=== PATIENT | female | born 1960 | race Caucasian/White ===

== ENCOUNTER 2020-07-09 18:06 | Emergency (ER) | payer OTHER, SELFPAY ==
--- NOTE | ~2020-07-09 | CT_ITS ---
EXAMINATION: CT abdomen pelvis wo con DATE: 07/09/2020 22:34 INDICATION: Abdominal pain and constipation. TECHNIQUE: Computed tomography (CT) of the abdomen and pelvis was performed without intravenous contr ast. Automated exposure control and iterative reconstruction technique were employed. The dose-length product was 659.40 mGy-cm. COMPARISON: None FINDINGS: Lung bases are clear. Heart size is normal. Atherosclerotic coronary artery calcific calcification. N o pericardial or pleural effusion. Small sliding-type hiatal hernia. 9 mm low-attenuation likely cyst or hemangioma in segment 3 of the liver. Gallbladder, spleen, pancreas, bilateral adrenal glands and kidneys are normal. Normal small bowel and appendix. Moderate amount of stool scattered throughout t he colon. There is wall thickening and pericolonic inflammatory stranding along the proximal to mid s igmoid colon. There is moderate sigmoid diverticulosis but without focal inflammatory stranding surro unding any given diverticulum to suggest diverticulitis. No pneumatosis or free intraperineal gas. Bl adder, anteverted uterus and bilateral adnexa are unremarkable. Likely pessary in the vaginal vault. No free intraperitoneal gas or fluid. No pathologically enlarged abdominal or pelvic lymphadenopathy. Moderate lumbar spondylosis. IMPRESSION: 1. Sigmoid diverticulosis but with more diffuse wall thickening and inflammatory stranding along the sigmoid colon. Although differential would include diverticulitis this could also represent a focal c olitis could be either infectious, inflammatory or ischemic in etiology. If not recently performed wo uld recommend colonoscopy for further evaluation to exclude malignancy which could also appear simila rly. 2. Small sliding-type hiatal hernia. Reviewed, dictated and finalized at location A. GAGE SALES MANAGER IMPRESSION: 1. Sigmoid diverticulosis but with more diffuse wall thickening and inflammator y stranding along the sigmoid colon. Although differential would include divert iculitis this could also represent a focal colitis could be either infectious, inflammatory or ischemic in etiology. If not recently performed would recommend colonoscopy for further evaluation to exclude malignancy which could also appe ar similarly. 2. Small sliding-type hiatal hernia.
[2020-07-09 18:43] VITALS: BP 126/89; PULSE 102; RESP 16; TEMP 36.3; O2SAT 98
[2020-07-09 19:03] LABS: Basophils Percent Auto 0.3 % (0.2-1.2); Eosinophils Absolute Auto 0.2 K/mm3 (0-0.3); Eosinophils Percent Auto 1.3 % (0-4.4); Hematocrit 42.1 % (37.0-47.0); Hemoglobin 14.2 g/dL (12.0-15.0); Immature Granulocyte Absolute 0.07 K/mm3 (0.00-0.031); Immature Granulocyte Percent A 0.5 % (0-0.5); Lymphocytes Absolute Auto 1.83 K/mm3 (0.9-3.2); Lymphocytes Percent Auto 13.6 % (18.3-44.2); Mean Corpuscular HGB Conc 33.7 g/dl (32-36); Mean Corpuscular Hemoglobin 30.7 pg (26-34); Mean Corpuscular Volume 90.9 fl (80-100); Mean Platelet Volume 8.6 fl (7.4-10.4); Monocytes Absolute Auto 0.6 K/mm3 (0.1-0.6); Monocytes Percent Auto 4.7 % (2.6-8.5); Neutrophils Absolute Auto 10.7 K/mm3 (1.3-6.7); Neutrophils Percent Auto 79.6 % (45.5-73.1); Platelet Count Result 398 k/mm3 (150-375); Red Blood Count 4.63 M/mm3 (4.2-5.4); Red Cell Distribution Width 13.3 % (11.5-14.5); White Blood Count 13.5 K/mm3 (4.5-10.0)
[2020-07-09 19:15] LABS: Alanine Aminotransferase 28 U/L (4-35); Albumin Level 4.2 g/dL (3.5-5.1); Alkaline Phosphatase 95 U/L (38-126); Anion Gap 6 mmol/L (8-16); Aspartate Amino Transferase 34 U/L (14-36); Bilirubin,Total 0.8 mg/dL (0.2-1.3); Blood Urea Nitrogen 19 mg/dL (7-17); Calcium 9.8 mg/dL (8.4-10.2); Carbon Dioxide 25 mmol/L (22-30); Chloride 108 mmol/L (98-107); Estimated CRCL calculation 66 ml/min; Estimated Glomerular Filt Rate > 60; Glucose 115 mg/dL (65-105); Lipase 285 U/L (23-300); Sodium 139 mmol/L (137-145)
--- NOTE | 2020-07-09 21:23 | PC.NURSE ---
Patient stating she is now having lower abd pain.
[2020-07-09 22:35] VITALS: BP 125/69; PULSE 73; RESP 22; TEMP 36.3; O2SAT 100
--- NOTE | 2020-07-09 22:36 | ED.GENADULT ---
HPI - General Adult General Chief complaint: Unspecified Stated complaint: ABD PAIN after foot surgery Time Seen by Provider: 07/09/20 22:13 Source: patient Mode of arrival: ambulatory Limitations: no limitations History of Present Illness HPI narrative: Patient is a 52-year-old male complaining of constipation accompanied by mild abdominal discomfort that started approximately 2 weeks ago after being started on hydrocodone for his foot surgery, pain. Pain Consistency: intermittent Exacerbating factors: none Related Data Allergies Allergy/AdvReac Type Severity Reaction Status Date / Time adhesive tape AdvReac Mild Rash Verified 07/09/20 22:45 Review of Systems Review of Systems: All systems reviewed & are unremarkable except as noted in HPI and below Constitutional: Constitutional: Denies body ache(s), Denies chills, Denies excessive sweating, Denies fatigue, Denies fever(s), Denies headache(s), Denies lethargy, Denies malaise, Denies weakness and Denies weight loss Eyes: Eyes: Denies blurry vision, Denies change in vision and Denies loss of vision ENT: Denies dizziness, Denies ear discharge, Denies headache(s), Denies lip swelling, Denies epistaxis, Denies nasal congestion, Denies neck pain, Denies throat swelling and Denies tongue swelling Cardiovascular: Cardiovascular: Denies chest pain, Denies chest pain at rest, Denies chest pain with activity, Denies diaphoresis, Denies rapid heart rate, Denies edema, Denies irregular heart rhythm, Denies lightheadedness, Denies palpitations, Denies dyspnea and Denies dyspnea on exertion Respiratory: Respiratory: Denies chest congestion, Denies cough, Denies hemoptysis, Denies dyspnea and Denies dyspnea on exertion Gastrointestinal: Gastrointestinal: Denies melena, Denies hematochezia, Denies diarrhea, Denies nausea, Denies vomiting and Denies hematemesis Musculoskeletal: Musculoskeletal: Denies abnormal gait, Denies deformity, Denies joint swelling, Denies limited range of motion, Denies neck pain and Denies numbness Neurologic: Denies Abnormal speech present, Denies abnormal gait, Denies confusion, Denies dizziness, Denies headache(s), Denies focal weakness, Denies loss of vision, Denies numbness, Denies Other visual disturbances, Denies Sensory deficit (Neuro) and Denies weakness Psychiatric: Psychiatric: Denies confusion, Denies depression, Denies auditory hallucinations, Denies homicidal ideation and Denies suicidal ideation Endocrine: Endocrine: Denies cold intolerance, Denies excessive sweating, Denies fatigue, Denies heat intolerance and Denies palpitations Hematologic/Lymphatic: Hematologic/Lymphatic: Denies easy bleeding and Denies easy bruising Allergic/Immunologic: Allergic/Immunologic: Denies lip swelling, Denies throat swelling and Denies tongue swelling Exam Const: General: cooperative, healthy appearing, comfortable, no acute distress, well developed, alert and awake; No confusion Orientation/consciousness: oriented to person, oriented to place, oriented to time, patient oriented x3 and No confusion Limitations: no limitations HENMT: Head: normal to inspection, normocephalic and atraumatic Ears: hearing grossly normal bilaterally, TM normal on the right and TM normal on the left General nose exam: Normal external nose present, Normal nares present and No nasal discharge present Face and sinus: normal facial exam Mouth: Yes Normal oral and palatal mucosa present, Yes lip normal, Yes tongue normal and Yes oropharynx normal Throat: posterior oropharynx normal, tonsils normal and uvula midline Eyes: General: appearance normal, both eyes and all related structures Pupils: Equal, round and reactive pupils present EOM: EOMs intact bilaterally Neck: Neck: normal visual inspection, full ROM, no lymphadenopathy and no meningeal signs Chest: Chest palpation & inspection: normal inspection of the chest Resp: Effort & Inspection: normal respiratory effort, able to speak in complete
[2020-07-09 22:41] VITALS: PULSE 68; PULSE 73; RESP 17
[2020-07-09 22:42] VITALS: BP 143/83; PULSE 73; RESP 19; O2SAT 100
--- NOTE | 2020-07-09 22:42 | PC.NURSE ---
patient brought back to ED room 1. see triage notes. no change in patient's condition since triage completed. patient has been in our waiting area due to no beds available in ED. patient has had CT done. labs pending. SL inserted. IVF started. patient placed on manager cardiac. call light in reach. patient updated on current treatment plan and expected wait time. patient has scooter at bedside due to recent foot surgery. patient aware that urine specimen will be needed.
[2020-07-09] MEDS: SODIUM CHLORIDE 0.9% IV 1,000 ML 999 ML IV CONT (22:45)
--- NOTE | 2020-07-09 23:24 | PC.NURSE ---
pt assisted to w/c by Ze MIGUEL and taken to restroom to attempt to provide urine sample.
[2020-07-09 23:45] VITALS: BP 146/81; PULSE 63; RESP 16; O2SAT 99
[2020-07-09 23:53] LABS: Add Urine Microscopic? YES; Appearance Urine Clear (Clear); Bilirubin Urine Negative (Negative); Blood Urine Negative (Negative); Color Urine Yellow (Yellow); Glucose Urine UA Negative (Negative); Ketones Urine 1+ mg/dL (Negative); Leukocyte Esterase Ur Trace LEU/UL (Negative); Mucus Urine Moderate /lpf; Nitrate Urine Negative (Negative); Protein Urine Negative (Negative); Squamous Epithelial Cell Urine Many /hpf (Few); WBC Urine 0-3 /hpf
[2020-07-10] LABS: Specific Grav Ur 1.031 (1.001-1.035)
[2020-07-10] MEDS: metroNIDAZOLE 500 MG/ISO 100ML 500 MG/100 ML BAG 100 MG IVPB (00:20)
[2020-07-10 01:19] VITALS: BP 127/77; PULSE 72; RESP 12; O2SAT 99
== END 2020-07-10 01:20 | disposition home or self-care (01) ==
PROVIDERS: Emergency Medicine; Emergency Provider Emergency Medicine; PCP Internal Medicine
DX: K52.9 Noninfective gastroenteritis and colitis, unspecified (principal); Z98.890 Other specified postprocedural states
CPT/HCPCS: 36415; 74176; 80053; 81001; 83690; 85025; 96361; 96365; 96367; 99284; J0696; J7030

== ENCOUNTER 2022-10-03 19:40 | Inpatient (IN) | payer OTHER, SELFPAY ==
--- NOTE | ~2022-10-03 | CT_ITS ---
EXAMINATION: CT abdomen pelvis w con DATE: 10/03/2022 21:52 INDICATION: Low abdominal pain, rectal bleeding. Hematemesis. TECHNIQUE: Computed tomography (CT) of the abdomen and pelvis was performed with 100 CC Omnipaque 350 intravenous contrast. Automated exposure control and iterative reconstruction technique were employe d. Exam dose: 517.68 mGy-cm total exam DLP. COMPARISON: 07/09/2020 CT abdomen FINDINGS: The lung bases are clear. Normal heart size. No pericardial or pleural effusion. Approximately 1.3 cm hemangioma or cyst of the left hepatic lobe. The liver is otherwise unremarkable . The gallbladder is unremarkable. No pericholecystic fluid fat stranding. No bile duct or pancreatic duct dilatation. No pancreatic mass lesion or calcification. Normal splenic size. Normal morphology of the adrenal glands. No renal mass lesion or urinary tract calculus or hydroureteronephrosis. Pessary device. The uterus, adnexal areas and urinary bladder are otherwise unremarkable. Small sliding hiatal hernia. No evidence of appendicitis. There is prominent circumferential wall thickening of the distal transverse colon, splenic flexure an d descending colon with mild pericolic fat stranding. Findings are consistent with colitis are consid ered infectious or inflammatory colitis. Less likely would be ischemic colitis. The celiac and superi or mesenteric and inferior mesenteric arteries appear widely patent. There is minimal atherosclerotic calcification of the abdominal aorta. No abdominal aortic aneurysm. No intraperitoneal or retroperitoneal or pelvic mass lesion or adenopathy or ascites. Very small fat-containing umbilical hernia. No suspicious osteolytic or osteoblastic lesions. Prominent degenerative changes apophyseal joints of the lower lumbar and lumbosacral area with associ ated grade 1 anterolisthesis at L4-5. Moderately severe degenerative disc disease at L4-5. Diverticulosis of the sigmoid and descending colon; no evidence of diverticulitis IMPRESSION: Nonspecific colitis of the distal transverse colon and descending colon; infectious or i nflammatory colitis are most likely. Diverticulosis of left colon; no CT evidence of diverticulitis No evidence of appendicitis Small sliding hiatal hernia. Approximately 1.3 cm hemangioma or cyst of left hepatic lobe Pessary device Reviewed, dictated and finalized at [facility]. Reviewed, dictated and finalized at location A. TE MACHINE BLUER IMPRESSION: Nonspecific colitis of the distal transverse colon and descending colon; infectious or inflammatory colitis are most likely. Diverticulosis of left colon; no CT evidence of diverticulitis No evidence of appendicitis Small sliding hiatal hernia. Approximately 1.3 cm hemangioma or cyst of left hepatic lobe Pessary device
--- NOTE | ~2022-10-03 | XR_ITS ---
EXAMINATION: XR abdomen/kub 1V INDICATION: Constipation TECHNIQUE: Supine views of the abdomen were obtained on 2 radiographs. COMPARISON: 09/15/2022 FINDINGS: The bowel gas pattern is normal. There are no dilated loops of bowel. The visualized lung b ases are clear. A pessary is noted. IMPRESSION: 1. Unremarkable abdominal radiographs. Reviewed, dictated and finalized at location F. ERS' COMPENSATION COMMISSIONER
--- NOTE | ~2022-10-03 | XR_ITS ---
EXAMINATION: XR abdomen/kub 1V DATE: 10/05/2022 13:18 INDICATION: Nausea and vomiting. TECHNIQUE: A supine view of the abdomen on 2 radiographs was obtained. COMPARISON: CT abdomen and pelvis 10/03/2022 FINDINGS: There are no dilated loops of bowel. There is a pessary in the vagina. IMPRESSION: 1. Normal bowel gas pattern. Reviewed, dictated and finalized at location A. WARE SYSTEMS ENGINEER
[2022-10-03 19:52] VITALS: BP 131/91; PULSE 116; RESP 18; TEMP 36.8; O2SAT 97
[2022-10-03 20:36] LABS: Basophils Percent Auto 0.2 % (0.2-1.2); Eosinophils Percent Auto 0.1 % (0-4.4); Hematocrit 41.2 % (37.0-47.0); Hemoglobin 14.3 g/dL (12.0-15.0); Immature Granulocyte Percent A 0.6 % (0-0.5); Lymphocytes Absolute Auto 0.74 K/mm3 (0.9-3.2); Lymphocytes Percent Auto 4.6 % (18.3-44.2); Mean Corpuscular HGB Conc 34.7 g/dl (32-36); Mean Corpuscular Hemoglobin 31.8 pg (26-34); Mean Corpuscular Volume 91.8 fl (80-100); Mean Platelet Volume 8.8 fl (7.4-10.4); Monocytes Absolute Auto 0.7 K/mm3 (0.1-0.6); Monocytes Percent Auto 4.4 % (2.6-8.5); Neutrophils Absolute Auto 14.4 K/mm3 (1.3-6.7); Neutrophils Percent Auto 90.1 % (45.5-73.1); Platelet Count Result 300 k/mm3 (150-375); Red Blood Count 4.49 M/mm3 (4.2-5.4); Red Cell Distribution Width 12.9 % (11.5-14.5)
[2022-10-03 20:46] LABS: Prothrombin Time 13.1 Seconds (11.1-14.7)
[2022-10-03 20:47] LABS: Partial Thromboplastin Time 29.3 SECONDS (22.3-36.8)
[2022-10-03 20:53] LABS: Alanine Aminotransferase 25 U/L (6-35); Albumin Level 4.3 g/dL (3.5-5.1); Alkaline Phosphatase 89 U/L (38-126); Anion Gap 7 mmol/L (8-16); Aspartate Amino Transferase 34 U/L (14-36); Bilirubin,Total 0.8 mg/dL (0.2-1.3); Blood Urea Nitrogen 19 mg/dL (7-17); Calcium 10.1 mg/dL (8.4-10.2); Carbon Dioxide 26 mmol/L (22-30); Chloride 103 mmol/L (98-107); Estimated CRCL calculation 64 ml/min; Estimated Glomerular Filt Rate > 60; Glucose 128 mg/dL (65-110); Lipase 50 U/L (23-300); Magnesium 1.8 mg/dL (1.6-2.3); Potassium 4.3 mmol/L (3.4-5.0); Sodium 136 mmol/L (137-145)
[2022-10-03 20:55] LABS: CRP 1.4 mg/dL (<1.0)
[2022-10-03 20:57] LABS: Lactic Acid Reflex 1.3 mmol/L (0.7-2.0)
[2022-10-03] MEDS: MORPHINE SULFATE (*CRX) 4 MG/ML INJ IV PUSH ×2 (21:06→23:39)
[2022-10-03] MEDS: ONDANSETRON INJ 4 MG/2 ML VIAL IV PUSH (21:06)
--- NOTE | 2022-10-03 21:06 | ED.GENADULT ---
HPI - General Adult General Chief complaint: Abdominal Pain Stated complaint: abd pain, blood in stool Time Seen by Provider: 10/03/22 19:53 History of Present Illness HPI narrative: Patient 62-year-old female who presents the emergency department with chief complaint of abdominal pain vomiting and diarrhea. The patient reports that this morning she started having episodes of vomiting and then also has been having diarrhea. The patient reports that gradually the diarrhea has changed over to being bloody and reports that she noticed that her vomit also contained blood in it. Patient reports she has diffuse abdominal discomfort the patient denies fever reports no prior history of similar symptoms reports she is not on any anticoagulant patient denies prior abdominal surgeries. Related Data Allergies Allergy/AdvReac Type Severity Reaction Status Date / Time adhesive tape AdvReac Mild Rash Verified 10/03/22 20:03 Review of Systems Review of Systems: A 10 system review of systems was completed on the patient and is negative except for what is stated in the HPI. Nursing and ancillary documentation was reviewed. Exam Narrative: GENERAL: Well-appearing, well-nourished, and in no acute distress. HEAD: Normocephalic, atraumatic. EYES: PERRLA and EOMI. ENT: Nares clear, no rhinorrhea or epistaxis. Mucous membranes moist. NECK: Supple. CHEST: Clear to auscultation. No respiratory distress. HEART: Regular rate and rhythm. No murmur heard. Normal peripheral pulses. ABDOMEN: Soft, minimal tenderness, nondistended, normal active bowel sounds. : Rectal exam performed no gross blood but quite positive EXTREMITIES: Normal range of motion. No edema. SKIN: Warm, dry, no rash. NEURO: No focal deficits. Alert and oriented x3. PSYCH: Normal mood and affect. Course Vital Signs Vital signs: Vital Signs Temperature 36.8 C 10/03/22 19:52 Pulse Rate 116 H 10/03/22 19:52 Respiratory Rate 18 10/03/22 19:52 Blood Pressure 131/91 H 10/03/22 19:52 Pulse Oximetry 97 10/03/22 19:52 Oxygen Delivery Room Air 10/03/22 19:52 Temperature 36.8 C 10/03/22 19:52 Pulse Rate 116 H 10/03/22 19:52 Respiratory Rate 18 10/03/22 19:52 Blood Pressure 131/91 H 10/03/22 19:52 Pulse Oximetry 97 10/03/22 19:52 Oxygen Delivery Room Air 10/03/22 19:52 Medical Decision Making MDM Narrative Medical decision making narrative: Differential diagnosis includes colitis diverticulitis, GI bleeding, appendicitis cholecystitis Laboratory studies were obtained which showed a mildly elevated CRP at 1.4 white count was 16,000 hemoglobin was 14.3 COVID was negative flu was negative. CT scan showed evidence of diffuse colitis involving the transverse and descending colon Vital Signs Vital Signs: Vital Signs Temperature 36.8 C 10/03/22 19:52 Pulse Rate 116 H 10/03/22 19:52 Respiratory Rate 18 10/03/22 19:52 Blood Pressure 131/91 H 10/03/22 19:52 Pulse Oximetry 97 10/03/22 19:52 Oxygen Delivery Room Air 10/03/22 19:52 Temperature 36.8 C 10/03/22 19:52 Pulse Rate 116 H 10/03/22 19:52 Respiratory Rate 18 10/03/22 19:52 Blood Pressure 131/91 H 10/03/22 19:52 Pulse Oximetry 97 10/03/22 19:52 Oxygen Delivery Room Air 10/03/22 19:52 Lab Data 10/03/22 20:21 10/03/22 20:21 Labs: Lab Results 10/03/22 10/03/22 10/03/22 Range/Units 20:21 20:21 20:21 WBC 16.0 H (4.5-10.0) K/mm3 RBC 4.49 (4.2-5.4) M/mm3 Hgb 14.3 (12.0-15.0) g/dL Hct 41.2 (37.0-47.0) % MCV 91.8 (80-100) fl MCH 31.8 (26-34) pg MCHC 34.7 (32-36) g/dl RDW 12.9 (11.5-14.5) % Plt Count 300 (150-375) k/mm3 MPV 8.8 (7.4-10.4) fl Immature Gran % (Auto) 0.6 H (0-0.5) % Neut % (Auto) 90.1 H (45.5-73.1) % Lymph % (Auto) 4.6 L (18.3-44.2) % [place] % (Auto) 4.4 (2.6-8.5) % Eos % (Auto) 0.1 (0-4.4) % Baso % (Auto) 0.2 (0.2-1.2)
[2022-10-03 21:15] LABS: Influenza A QL RT-PCR Negative (Negative); Influenza B QL RT-PCR Negative (Negative); SARS-CoV-2 RNA PCR Negative
[2022-10-03 22:00] VITALS: BP 126/94; PULSE 105; RESP 18; O2SAT 98
--- NOTE | 2022-10-03 23:12 | PM.IMHP ---
H&P: HPI History of Present Illness Date/Time: 10/03/22 23:12 Meds Home Medications and Allergies Home Medications Medication Instructions Recorded Confirmed Type ciprofloxacin HCl 500 mg tablet 500 mg PO Q12H #14 tabs 07/10/20 Rx (Cipro) metronidazole 500 mg tablet 500 mg PO Q8H 7 days #21 tabs 07/10/20 Rx (Flagyl) Allergies Allergy/AdvReac Type Severity Reaction Status Date / Time adhesive tape AdvReac Mild Rash Verified 10/03/22 20:03 Vital Signs Vital Signs - 24 hr 10/03/22 19:52 Temperature 98.2 F Pulse Rate 116 H Respiratory Rate 18 Blood Pressure 131/91 H Pulse Oximetry 97 Oxygen Delivery Room Air H&P: Results Labs Labs: Short CBC 10/03/22 Range/Units 20:21 WBC 16.0 H (4.5-10.0) K/mm3 Hgb 14.3 (12.0-15.0) g/dL Hct 41.2 (37.0-47.0) % Plt Count 300 (150-375) k/mm3 BMP 10/03/22 20:21 Sodium 136 L Potassium 4.3 Chloride 103 Carbon Dioxide 26 BUN 19 H Creatinine 0.80 Glucose 128 H Calcium 10.1 Liver Function 10/03/22 Range/Units 20:21 Total Bilirubin 0.8 (0.2-1.3) mg/dL AST 34 (14-36) U/L ALT 25 (6-35) U/L Alkaline Phosphatase 89 (38-126) U/L Albumin 4.3 (3.5-5.1) g/dL
--- NOTE | 2022-10-03 23:15 | PM.IMHP ---
H&P: HPI History of Present Illness Date/Time: 10/03/22 23:15 Chief Complaint: Abdominal pain, nausea, vomiting, diarrhea. Narrative: This is a 62-year-old female with GERD and hyperlipidemia presented to the emergency department via EMS from home for evaluation of abdominal pain, nausea, vomiting, and diarrhea. Patient provides the following history. Her symptoms started this morning with diffuse cramping abdominal pain followed by innumerable bouts of watery diarrhea which later turned bloody. She has also had significant nausea, dry heaves, and a small amount of emesis tinged with bright red blood. She has not had a fever to her knowledge. She denies recent antibiotic use, travel, and sick contacts. No personal history of C diff or inflammatory bowel disease. She has not cooked rum eat recently. Temperature was normal on arrival to the ED and her blood pressures have been stable. Pertinent labs include a WBC count of 16.0, sodium 136, potassium 4.3, carbon dioxide 26, BUN 19, creatinine 0.0, lactic acid 1.3, CRP 1.4. LFTs and lipase were within normal limits. She was negative for influenza and COVID. CT of the abdomen and pelvis showed findings of diffuse colitis involving a portion of the transverse and descending colon. She has been started on metronidazole and levofloxacin and she is being admitted in this setting for further treatment. Review of Systems Review of Systems: Twelve systems were reviewed and are negative except for as per HPI. FORMERLY [facility], [facility] Past Medical History Medical History (Updated 10/03/22 @ 23:39 by Susana Agosto PA-C) Depression with anxiety Gastroesophageal reflux disease Irritable bowel syndrome Surgical History Surgical History (Updated 10/03/22 @ 23:36 by Susana Agosto PA-C) History of foot surgery Social History Social History (Updated 10/03/22 @ 23:37 by Susana Agosto PA-C) Social History: The patient lives in [place] with her . Retired from working for [employer]. Nonsmoker. No alcohol or illicit substance abuse. She designates her as her surrogate decision maker and she wishes to be a full code. Meds Home Medications and Allergies Home Medications Medication Instructions Recorded Confirmed Type ciprofloxacin HCl 500 mg tablet 500 mg PO Q12H #14 tabs 07/10/20 Rx (Cipro) metronidazole 500 mg tablet 500 mg PO Q8H 7 days #21 tabs 07/10/20 Rx (Flagyl) Allergies Allergy/AdvReac Type Severity Reaction Status Date / Time adhesive tape AdvReac Mild Rash Verified 10/03/22 20:03 Vital Signs Vital Signs - 24 hr 10/03/22 19:52 Temperature 98.2 F Pulse Rate 116 H Respiratory Rate 18 Blood Pressure 131/91 H Pulse Oximetry 97 Oxygen Delivery Room Air Exam Narrative: General: Moderately ill appearing female in the semi-Kimbrough position in bed in no acute distress. Weight: 73.6 kg. BMI 27.9. HEENT: Normocephalic, atraumatic. PERRL, EOMI. Sclera anicteric. Tacky mucous membranes. Neck: Supple. Respiratory: Lungs are clear to auscultation bilaterally. Cardiovascular: Regular rate and rhythm with S1-S2. Gastrointestinal: Abdomen is soft and slightly distended with hyperactive bowel sounds. She is tender to light palpation and percussion throughout the abdomen. No guarding or rebound tenderness. Skin: Warm and dry. No rash or lesions on limited exam. Extremities: No cyanosis, clubbing, or edema. Radial and pedal pulses intact. Neurological: Alert. Cranial nerves 2-12 are grossly intact. No gross focal deficits to casual conversation. Psychiatric: Appropriate mood and affect. H&P: Results Labs Labs: Short CBC 10/03/22 Range/Units 20:21 WBC 16.0 H (4.5-10.0) K/mm3 Hgb 14.3 (12.0-15.0) g/dL Hct 41.2 (37.0-47.0) % Plt Count 300 (150-375) k/mm3 [facility] 10/03/22 20:21 Sodium 136 L Potassium 4.3 Chloride 103 Carbon Dioxide 26 BUN 19 H Creatinine 0.80 Glucose 128 H Calcium 10.1 Live
[2022-10-03] MEDS: metroNIDAZOLE 500 MG/ISO 100ML 500 MG/100 ML BAG 100 MG IVPB (23:33)
[2022-10-04 00:14] VITALS: BP 105/72; PULSE 99; RESP 16; O2SAT 98
[2022-10-04 00:20] VITALS: BP 100/50; PULSE 83; RESP 18; TEMP 36.8; O2SAT 98; BMI 26.8
[2022-10-04] MEDS: PROMETHAZINE HCL 25 MG/ML AMPUL 12.5 MG IV PUSH ×4 (01:18→21:38)
[2022-10-04] MEDS: LORazepam INJ (*CRX) 2 MG/ML VIAL 1 MG IV PUSH (01:18)
[2022-10-04] MEDS: SODIUM CHLORIDE 0.9% IV 1,000 ML 125 ML IV CONT ×2 (01:19→16:42)
[2022-10-04] MEDS: ONDANSETRON INJ 4 MG/2 ML VIAL IV PUSH ×2 (01:19→21:38)
[2022-10-04] MEDS: PANTOPRAZOLE SODIUM IV 40 MG VIAL IV PUSH ×2 (01:28→09:29)
[2022-10-04 05:39] VITALS: BP 103/49; PULSE 87; RESP 20; TEMP 36.9; O2SAT 97
[2022-10-04] MEDS: metroNIDAZOLE 500 MG/ISO 100ML 500 MG/100 ML BAG 100 MG IVPB ×4 (06:20→21:37)
[2022-10-04 07:37] LABS: Basophils Percent Auto 0.2 % (0.2-1.2); Eosinophils Absolute Auto 0.1 K/mm3 (0-0.3); Eosinophils Percent Auto 0.8 % (0-4.4); Hematocrit 39.2 % (37.0-47.0); Hemoglobin 13.1 g/dL (12.0-15.0); Immature Granulocyte Absolute 0.07 K/mm3 (0.00-0.031); Immature Granulocyte Percent A 0.6 % (0-0.5); Lymphocytes Absolute Auto 1.39 K/mm3 (0.9-3.2); Lymphocytes Percent Auto 11.3 % (18.3-44.2); Mean Corpuscular HGB Conc 33.4 g/dl (32-36); Mean Corpuscular Hemoglobin 31.3 pg (26-34); Mean Corpuscular Volume 93.8 fl (80-100); Mean Platelet Volume 8.6 fl (7.4-10.4); Monocytes Absolute Auto 0.8 K/mm3 (0.1-0.6); Monocytes Percent Auto 6.3 % (2.6-8.5); Neutrophils Percent Auto 80.8 % (45.5-73.1); Platelet Count Result 266 k/mm3 (150-375); Red Blood Count 4.18 M/mm3 (4.2-5.4); Red Cell Distribution Width 13.2 % (11.5-14.5); White Blood Count 12.3 K/mm3 (4.5-10.0)
[2022-10-04 07:43] LABS: Alanine Aminotransferase 23 U/L (6-35); Albumin Level 3.8 g/dL (3.5-5.1); Alkaline Phosphatase 80 U/L (38-126); Anion Gap 6 mmol/L (8-16); Aspartate Amino Transferase 37 U/L (14-36); Bilirubin,Total 0.8 mg/dL (0.2-1.3); Blood Urea Nitrogen 14 mg/dL (7-17); Calcium 8.5 mg/dL (8.4-10.2); Carbon Dioxide 23 mmol/L (22-30); Chloride 105 mmol/L (98-107); Estimated CRCL calculation 56 ml/min; Estimated Glomerular Filt Rate > 60; Glucose 110 mg/dL (65-110); Magnesium 1.7 mg/dL (1.6-2.3); Potassium 3.7 mmol/L (3.4-5.0); Sodium 134 mmol/L (137-145)
[2022-10-04 08:28] LABS: Thyroid Stimulating Hormone Reflex 0.385 uIU/mL (0.465-4.68)
[2022-10-04 10:22] LABS: Total Triiodothyronine (T3) 0.88 NG/ML (0.97-1.69)
[2022-10-04] MEDS: MORPHINE SULFATE (*CRX) 4 MG/ML INJ IV PUSH ×3 (10:54→21:38)
--- NOTE | 2022-10-04 11:03 | PM.IMPN ---
Progress Note: A&P Assessment and Plan (1) Colitis: Code(s): K52.9 - Noninfective gastroenteritis and colitis, unspecified Status: Acute (2) Rectal bleeding: Code(s): K62.5 - Hemorrhage of anus and rectum Status: Acute (3) Dehydration: Code(s): E86.0 - Dehydration Status: Acute Plan The patient presented to the ED via EMS from home for evaluation abdominal pain, vomiting, and diarrhea as per HPI. Labs, imaging, and all reports were personally reviewed. CT scan shows findings of colitis which are presumably infectious. Ischemic colitis is a consideration given reports of bright red blood per rectum however her lactic acid level is within normal limits. She has been started on metronidazole and levofloxacin. Stool studies have been ordered and are pending. Trend hemoglobin and hematocrit. Patient also reports blood tinged emesis following multiple episodes of dry heaves and I think it is unlikely that she has an acute upper GI bleed as well. We will continue to monitor closely. Antiemetics are available as needed. Continue Protonix 40 mg IV. She will be judiciously hydrated overnight as she looks quite dry. Her home medications will be reviewed and resumed as appropriate. Subjective Date/time seen: 10/04/22 11:03 No complaints Exam Narrative: General: Moderately ill appearing female in the semi-Kimbrough position in bed in no acute distress. Weight: 73.6 kg. BMI 27.9. HEENT: Normocephalic, atraumatic. PERRL, EOMI. Sclera anicteric. Tacky mucous membranes. Neck: Supple. Respiratory: Lungs are clear to auscultation bilaterally. Cardiovascular: Regular rate and rhythm with S1-S2. Gastrointestinal: Abdomen is soft and slightly distended with hyperactive bowel sounds. She is tender to light palpation and percussion throughout the abdomen. No guarding or rebound tenderness. Skin: Warm and dry. No rash or lesions on limited exam. Extremities: No cyanosis, clubbing, or edema. Radial and pedal pulses intact. Neurological: Alert. Cranial nerves 2-12 are grossly intact. No gross focal deficits to casual conversation. Psychiatric: Appropriate mood and affect. Objective Data Vital Signs Vital Signs: Vital Signs - 24 hr 10/03/22 19:52 10/04/22 00:14 10/03/22 22:00 Temperature 98.2 F Pulse Rate 116 H 99 105 H Respiratory Rate 18 16 18 Blood Pressure 131/91 H 105/72 126/94 H Pulse Oximetry 97 98 98 Oxygen Delivery Room Air 10/04/22 00:20 10/04/22 05:39 Temperature 98.2 F 98.4 F Pulse Rate 83 87 Respiratory Rate 18 20 Blood Pressure 100/50 L 103/49 L Pulse Oximetry 98 97 Oxygen Delivery Intake/Output Intake/Output: Intake & Output 10/01/22 10/02/22 10/03/22 10/04/22 23:59 23:59 23:59 23:59 Intake Total 900 350 Balance 900 350 Meds/Results Medications: Active Medications Generic Name Dose Route Start Last Admin Trade Name Freq PRN Reason Stop Dose Admin Acetaminophen 650 mg 10/03/22 23:42 Acetaminophen 325 Mg Tablet PO Q6H PRN Mild Pain (1-3) or Fever Atorvastatin Calcium 40 mg 10/04/22 09:00 10/04/22 10:55 Atorvastatin 40 Mg Tablet PO Not Given DAILY BRONSON Bupropion HCl 150 mg 10/04/22 09:00 10/04/22 10:55 Bupropion Hcl Sr (12 Hr) 150 Mg Tab PO Not Given Q12HR BRONSON Hyoscyamine 0.375 mg 10/04/22 09:00 10/04/22 10:55 Hyoscyamine Sulfate 0.375 Mg Tab.Er.12h PO Not Given Q12HR BRONSON Levofloxacin/Dextrose 750 mg in 150 mls @ 100 mls/hr 10/05/22 00:00 Levaquin 750 Mg/D5w 150 Ml IVPB Q24H BRONSON Metronidazole 500 mg in 100 mls @ 100 mls/hr 10/04/22 05:00 10/04/22 10:51 Flagyl 500 Mg/Iso Soln 100 Ml IVPB 100 mls/hr Q6H BRONSON Administration Acetaminophen 1,000 mg in 100 mls @ 400 mls/hr 10/03/22 23:15 10/04/22 07:55 Ofirmev 1,000 Mg Ivpb IVPB 10/04/22 23:14 Infused Q6H PRN Infusion Mild Pain (1-3) or Fever Sodium Chloride 1,000 mls @ 125 mls/hr 10/03/22 23:15 10/04/22 01:19
[2022-10-04 11:14] LABS: Appearance Urine Clear (Clear); Bilirubin Urine Negative (Negative); Blood Urine Trace-lysed (Negative); Color Urine Yellow (Yellow); Glucose Urine UA Negative (Negative); Ketones Urine Negative (Negative); Leukocyte Esterase Ur 1+ LEU/UL (Negative); Nitrate Urine Negative (Negative); Protein Urine Negative (Negative); Specific Grav Ur >= 1.030 (1.001-1.035); Urobilinogen Urine 0.2 mg/dL (<2.0); pH Urine 5.5 (5.0-9.0)
[2022-10-04 11:19] LABS: Bacteria Urine Trace /hpf; Mucus Urine Rare /lpf; Squamous Epithelial Cell Urine Many /hpf (Few); WBC Urine 21-30 /hpf
[2022-10-04 12:09] LABS: Add Urine Microscopic? YES
[2022-10-04 14:00] VITALS: BP 121/72; PULSE 85; RESP 16; TEMP 36.9; O2SAT 98
[2022-10-04 16:16] LABS: Hemoglobin 12.3 g/dL (12.0-15.0)
[2022-10-04] MEDS: CALCIUM CARBONATE (TUMS) 500 MG (200 MG ELEMENTAL) 400 MG PO (16:41)
--- NOTE | 2022-10-04 17:27 | WPDGICN ---
Assessment and Plan Assessment and plan (1) Colitis: Code(s): K52.9 - Noninfective gastroenteritis and colitis, unspecified Status: Acute Assessment and Plan: colitis will explain presentation of symptoms, could be infectious or ischemic (normal lactic though) fluids, antibiotics and medical support CL diet for now stool studies pending I will favor colonoscopy in 4-6 weeks after back to her baseline (2) Rectal bleeding: Code(s): K62.5 - Hemorrhage of anus and rectum Status: Acute Assessment and Plan: from colitis stable h/h (3) Leukocytosis: Code(s): D72.829 - Elevated white blood cell count, unspecified Status: Acute Assessment and Plan: on abx monitor (4) Dehydration: Code(s): E86.0 - Dehydration Status: Acute Assessment and Plan: treated with fluids (5) Nausea and vomiting in adult: Code(s): R11.2 - Nausea with vomiting, unspecified Status: Acute Assessment and Plan: from enterocolitis medical management GI Consult Note Consult date/time: 10/04/22 17:27 Reason for consult: colitis, rectal bleed, diarrhea HPI: Lottie Crisostomo is a 62 year old female with GERD, chronic constipation (normally goes 1-2 times a week) and hyperlipidemia presented to the emergency department via EMS from home for new onset of severe lower abdominal pain, nausea, vomiting, and diarrhea. Symptoms started morning of admission with diffuse cramping abdominal pain then with several bouts of watery diarrhea followed bloody stool. Also became nauseous and small amount of emesis. Denies fever or chills, no sick contacts, no recent antibiotic use or travel. Blood work WBC 16.0, sodium 136, potassium 4.3, carbon dioxide 26, BUN 19, creatinine 0.0, lactic acid 1.3, CRP 1.4. LFTs and lipase were within normal limits. She was negative for influenza and COVID. CT of the abdomen and pelvis reviewed and showed findings of diffuse colitis involving a portion of the transverse and descending colon. Last colonoscopy about 5 years ago. Review of Systems Constitutional: Constitutional: Denies chills Eyes: Eyes: Denies blurry vision ENT: Reports Normal hearing present Cardiovascular: Cardiovascular: Denies chest pain Respiratory: Respiratory: Denies chest congestion Gastrointestinal: Gastrointestinal: Reports abdominal pain, Reports hematochezia, Reports diarrhea, Reports nausea and Reports vomiting Genitourinary: Genitourinary: Denies hematuria Musculoskeletal: Musculoskeletal: Denies back pain Integumentary/Breasts: Skin/Breast: Denies dry skin Neurologic: Denies Abnormal speech present Psychiatric: Psychiatric: Denies behavioral changes [facility] Past Medical History Medical History (Updated 10/04/22 @ 17:31 by Timo Tenorio MD) Depression with anxiety Gastroesophageal reflux disease Irritable bowel syndrome Nausea and vomiting in adult Surgical History Surgical History (Updated 10/03/22 @ 23:36 by Susana Agosto PA-C) History of foot surgery Social History Social History (Updated 10/03/22 @ 23:37 by Susana Agosto PA-C) Social History: The patient lives in [place] with her . 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 Nonsmoker. No alcohol or illicit substance abuse. She designates her as her surrogate decision maker and she wishes to be a full code. Smoking status: Never smoker Second hand tobacco smoke exposure: No Alcohol intake: never Substance use: never Substance use type: does not use Lack of Transportation: No Lack of Food: Never True Current Housing: I Have Housing Concerned About Future Housing: No Difficulty Paying Gas/Electric Bills: No Difficulty Paying for Meds: No Currently Unemployed: No Education: Decline to Answer Difficulty w/ Childcare or Family Care: No Spiritual care concerns: No Meds Home Medications and Allergies Home Medications
[2022-10-04 20:01] LABS: Hematocrit 37.2 % (37.0-47.0); Hemoglobin 12.4 g/dL (12.0-15.0)
[2022-10-04 21:30] VITALS: BP 120/54; PULSE 84; RESP 16; TEMP 37.5; O2SAT 96
[2022-10-04] MEDS: buPROPion HCL SR (12 HR) 150 MG TAB PO (21:37)
[2022-10-04] MEDS: HYOSCYAMINE SULFATE 0.375 MG TAB.ER.12H PO (21:37)
[2022-10-05] MEDS: SODIUM CHLORIDE 0.9% IV 1,000 ML 125 ML IV CONT ×2 (00:26→19:19)
[2022-10-05] MEDS: PROMETHAZINE HCL 25 MG/ML AMPUL 12.5 MG IV PUSH ×2 (02:30→09:11)
[2022-10-05] MEDS: MORPHINE SULFATE (*CRX) 4 MG/ML INJ IV PUSH ×2 (02:30→21:23)
--- NOTE | 2022-10-05 03:05 | PC.NURSE ---
Patient called out reporting multiple emesis. Patient called RN into BR to show small amount of bright red blood on underwear and toilet paper when wiping. Patient denies any syncope and Headache with nausea resolved well with medication. New IV started into right forearm and IVFs restarted. Patient otherwise is in stable condition.
[2022-10-05 05:43] VITALS: BP 121/53; PULSE 81; RESP 18; TEMP 36.8; O2SAT 97
[2022-10-05] MEDS: metroNIDAZOLE 500 MG/ISO 100ML 500 MG/100 ML BAG 100 MG IVPB ×4 (05:50→21:23)
[2022-10-05] MEDS: ATORVASTATIN 40 MG TABLET PO (09:11)
[2022-10-05] MEDS: HYOSCYAMINE SULFATE 0.375 MG TAB.ER.12H PO (09:11)
[2022-10-05] MEDS: PANTOPRAZOLE SODIUM IV 40 MG VIAL IV PUSH (09:11)
[2022-10-05] MEDS: buPROPion HCL SR (12 HR) 150 MG TAB PO (09:11)
[2022-10-05] MEDS: HYDROcodone/acetaminophen (*CRX) 5-325 MG TABLET 1 TAB PO ×2 (10:25→18:04)
--- NOTE | 2022-10-05 10:55 | PM.IMPN ---
Progress Note: A&P Assessment and Plan (1) Colitis: Code(s): K52.9 - Noninfective gastroenteritis and colitis, unspecified Status: Acute Assessment and Plan: Continue IV antibiotics (2) Rectal bleeding: Code(s): K62.5 - Hemorrhage of anus and rectum Status: Acute Assessment and Plan: Stabilized. Will recheck a H&H in the morning (3) Dehydration: Code(s): E86.0 - Dehydration Status: Acute Assessment and Plan: Continue IV fluids Subjective Date/time seen: 10/05/22 10:55 Complaining of a headache today. Otherwise no new complaints. Exam Narrative: General: Moderately ill appearing female in the semi-Kimbrough position in bed in no acute distress. Weight: 73.6 kg. BMI 27.9. HEENT: Normocephalic, atraumatic. PERRL, EOMI. Sclera anicteric. Tacky mucous membranes. Neck: Supple. Respiratory: Lungs are clear to auscultation bilaterally. Cardiovascular: Regular rate and rhythm with S1-S2. Gastrointestinal: Abdomen is soft and slightly distended with hyperactive bowel sounds. She is tender to light palpation and percussion throughout the abdomen. No guarding or rebound tenderness. Skin: Warm and dry. No rash or lesions on limited exam. Extremities: No cyanosis, clubbing, or edema. Radial and pedal pulses intact. Neurological: Alert. Cranial nerves 2-12 are grossly intact. No gross focal deficits to casual conversation. Psychiatric: Appropriate mood and affect. Objective Data Vital Signs Vital Signs: Vital Signs - 24 hr 10/04/22 14:00 10/04/22 21:30 10/05/22 05:43 Temperature 98.4 F 99.5 F 98.2 F Pulse Rate 85 84 81 Respiratory Rate 16 16 18 Blood Pressure 121/72 120/54 L 121/53 L Pulse Oximetry 98 96 97 Oxygen Delivery 10/05/22 09:11 Temperature Pulse Rate Respiratory Rate Blood Pressure Pulse Oximetry Oxygen Delivery Room Air Intake/Output Intake/Output: Intake & Output 10/02/22 10/03/22 10/04/22 10/05/22 23:59 23:59 23:59 23:59 Intake Total 900 1980 1500 Output Total 1000 900 Balance 900 980 600 Meds/Results Medications: Active Medications Generic Name Dose Route Start Last Admin Trade Name Freq PRN Reason Stop Dose Admin Acetaminophen 650 mg 10/03/22 23:42 Acetaminophen 325 Mg Tablet PO Q6H PRN Mild Pain (1-3) or Fever Atorvastatin Calcium 40 mg 10/04/22 09:00 10/05/22 09:11 Atorvastatin 40 Mg Tablet PO 40 mg DAILY BRONSON Administration Bupropion HCl 150 mg 10/04/22 09:00 10/05/22 09:11 Bupropion Hcl Sr (12 Hr) 150 Mg Tab PO 150 mg Q12HR BRONSON Administration Calcium Carbonate 400 mg 10/04/22 15:26 10/04/22 16:41 Calcium Carbonate (Tums) 500 Mg (200 Mg Elemental) PO 400 mg Q6H PRN Administration Indigestion Hyoscyamine 0.375 mg 10/04/22 09:00 10/05/22 09:11 Hyoscyamine Sulfate 0.375 Mg Tab.Er.12h PO 0.375 mg Q12HR BRONSON Administration Levofloxacin/Dextrose 750 mg in 150 mls @ 100 mls/hr 10/05/22 00:00 10/05/22 00:26 Levaquin 750 Mg/D5w 150 Ml IVPB 100 mls/hr Q24H BRONSON Administration Metronidazole 500 mg in 100 mls @ 100 mls/hr 10/04/22 05:00 10/05/22 10:27 Flagyl 500 Mg/Iso Soln 100 Ml IVPB 100 mls/hr Q6H BRONSON Administration Sodium Chloride 1,000 mls @ 125 mls/hr 10/03/22 23:15 10/05/22 00:26 Normal Saline Iv IV CONT 125 mls/hr .Q8H BRONSON Administration Morphine Sulfate 4 mg 10/03/22 23:45 10/05/22 02:30 Morphine Sulfate (*Crx) 4 Mg/Ml Inj IV PUSH 4 mg Q4H PRN Administration Pain Rated 7-10 Pantoprazole Sodium 40 mg 10/04/22 09:00 10/05/22 09:11 Pantoprazole Sodium Iv 40 Mg Vial IV PUSH 40 mg QAM BRONSON Administration Promethazine HCl 12.5 mg 10/03/22 23:15 10/05/22 09:11 Promethazine Hcl 25 Mg/Ml Ampul IV PUSH 12.5 mg Q6H PRN Administration Nausea Radiology Results: ITS Impressions Abdomen/Pelvis CT 02/26/23 11:09 IMPRESSION: Nonspecific colitis of the distal trans
--- NOTE | 2022-10-05 12:27 | WPDGIPROGNO ---
Progress Note: A&P Assessment and Plan (1) Nausea and vomiting in adult: Code(s): R11.2 - Nausea with vomiting, unspecified Status: Acute Assessment and Plan: antiemetics from colitis (2) Rectal bleeding: Code(s): K62.5 - Hemorrhage of anus and rectum Status: Acute Assessment and Plan: slowing down, from colitis stable h/h (3) Colitis: Code(s): K52.9 - Noninfective gastroenteritis and colitis, unspecified Status: Acute Assessment and Plan: on abx pending stool sample ? ischemic vs infections colonoscopy in 4-6 weeks (4) Leukocytosis: Code(s): D72.829 - Elevated white blood cell count, unspecified Status: Acute (5) Dehydration: Code(s): E86.0 - Dehydration Status: Acute Subjective Date/time seen: 10/05/22 12:27 Interval history: lat time had BM was 3 am, less bloody. Still with headache and nausea. Review of Systems Review of Systems: All systems reviewed & are unremarkable except as noted in HPI and below Exam Const: General: comfortable HENMT: Face/Nose/Sinus: Normal nares present Eyes: General: appearance normal, both eyes and all related structures Neck: Neck: supple Resp: Effort & Inspection: normal respiratory effort Cardio: Rate: regular rate Rhythm: regular rhythm GI: GI Palp: Yes Soft to palpation, Yes Tenderness to palpation present (GI) (mild ttp in lower abdomen, no rebound) and No Guarding due to palpation present (GI) Auscultation: normal bowel sounds Skin: General skin exam: normal color Neuro: Speech: normal speech Motor exam (neuro): 5/5 motor strength present throughout Sensory Exam: normal sensation Extrem: General: normal to inspection Objective Data Vital Signs Vital Signs: Vital Signs - 24 hr 10/04/22 14:00 10/04/22 21:30 10/05/22 05:43 Temperature 98.4 F 99.5 F 98.2 F Pulse Rate 85 84 81 Respiratory Rate 16 16 18 Blood Pressure 121/72 120/54 L 121/53 L Pulse Oximetry 98 96 97 Oxygen Delivery 10/05/22 09:11 Temperature Pulse Rate Respiratory Rate Blood Pressure Pulse Oximetry Oxygen Delivery Room Air Intake/Output Intake/Output: Intake & Output 10/02/22 10/03/22 10/04/22 10/05/22 23:59 23:59 23:59 23:59 Intake Total 900 1980 1500 Output Total 1000 900 Balance 900 980 600 Meds/Results Medications: Active Medications Generic Name Dose Route Start Last Admin Trade Name Freq PRN Reason Stop Dose Admin Acetaminophen 650 mg 10/03/22 23:42 Acetaminophen 325 Mg Tablet PO Q6H PRN Mild Pain (1-3) or Fever Atorvastatin Calcium 40 mg 10/04/22 09:00 10/05/22 09:11 Atorvastatin 40 Mg Tablet PO 40 mg DAILY BRONSON Administration Bupropion HCl 150 mg 10/04/22 09:00 10/05/22 09:11 Bupropion Hcl Sr (12 Hr) 150 Mg Tab PO 150 mg Q12HR BRONSON Administration Calcium Carbonate 400 mg 10/04/22 15:26 10/04/22 16:41 Calcium Carbonate (Tums) 500 Mg (200 Mg Elemental) PO 400 mg Q6H PRN Administration Indigestion Hyoscyamine 0.375 mg 10/04/22 09:00 10/05/22 09:11 Hyoscyamine Sulfate 0.375 Mg Tab.Er.12h PO 0.375 mg Q12HR BRONSON Administration Levofloxacin/Dextrose 750 mg in 150 mls @ 100 mls/hr 10/05/22 00:00 10/05/22 00:26 Levaquin 750 Mg/D5w 150 Ml IVPB 100 mls/hr Q24H BRONSON Administration Metronidazole 500 mg in 100 mls @ 100 mls/hr 10/04/22 05:00 10/05/22 10:27 Flagyl 500 Mg/Iso Soln 100 Ml IVPB 100 mls/hr Q6H BRONSON Administration Sodium Chloride 1,000 mls @ 125 mls/hr 10/03/22 23:15 10/05/22 00:26 Normal Saline Iv IV CONT 125 mls/hr .Q8H BRONSON Administration Morphine Sulfate 4 mg 10/03/22 23:45 10/05/22 02:30 Morphine Sulfate (*Crx) 4 Mg/Ml Inj IV PUSH 4 mg Q4H PRN Administration Pain Rated 7-10 Pantoprazole Sodium 40 mg 10/04/22 09:00 10/05/22 09:11 Pantoprazole Sodium Iv 40 Mg Vial IV PUSH 40 mg QAM BRONSON Administration Promethazine HCl
[2022-10-05 14:41] VITALS: BP 127/65; PULSE 94; RESP 18; TEMP 36.6; O2SAT 74
--- NOTE | 2022-10-05 16:22 | PC.NURSE ---
Pt is an A&O4 female that went down to xray today. Pt has had a headache that was treated with a one time dose of pain medication. Pt continues to have a headache, though she stated the pain did decrease. Will continue to monitor pt.
[2022-10-05] MEDS: PROCHLORPERAZINE EDISYLATE 10 MG/2 ML VIAL IV PUSH (21:23)
[2022-10-05 21:42] VITALS: BP 126/76; PULSE 71; RESP 14; TEMP 36.2; O2SAT 97
[2022-10-06] MEDS: HYDROcodone/acetaminophen (*CRX) 5-325 MG TABLET 1 TAB PO ×2 (04:53→14:49)
[2022-10-06] MEDS: PROMETHAZINE HCL 25 MG/ML AMPUL 12.5 MG IV PUSH (04:53)
[2022-10-06] MEDS: metroNIDAZOLE 500 MG/ISO 100ML 500 MG/100 ML BAG 100 MG IVPB (04:54)
[2022-10-06 05:45] VITALS: BP 122/59; PULSE 72; RESP 14; TEMP 36.1; O2SAT 96
[2022-10-06 06:29] LABS: Basophils Percent Auto 0.5 % (0.2-1.2); Eosinophils Absolute Auto 0.2 K/mm3 (0-0.3); Eosinophils Percent Auto 2.3 % (0-4.4); Hemoglobin 11.7 g/dL (12.0-15.0); Immature Granulocyte Absolute 0.05 K/mm3 (0.00-0.031); Immature Granulocyte Percent A 0.6 % (0-0.5); Lymphocytes Absolute Auto 1.48 K/mm3 (0.9-3.2); Lymphocytes Percent Auto 18.9 % (18.3-44.2); Mean Corpuscular HGB Conc 32.5 g/dl (32-36); Mean Corpuscular Hemoglobin 31.2 pg (26-34); Mean Platelet Volume 8.7 fl (7.4-10.4); Monocytes Absolute Auto 0.5 K/mm3 (0.1-0.6); Monocytes Percent Auto 6.5 % (2.6-8.5); Neutrophils Absolute Auto 5.6 K/mm3 (1.3-6.7); Neutrophils Percent Auto 71.2 % (45.5-73.1); Platelet Count Result 225 k/mm3 (150-375); Red Blood Count 3.75 M/mm3 (4.2-5.4); White Blood Count 7.8 K/mm3 (4.5-10.0)
[2022-10-06 06:46] LABS: Anion Gap 2 mmol/L (8-16); Blood Urea Nitrogen 5 mg/dL (7-17); Carbon Dioxide 26 mmol/L (22-30); Chloride 105 mmol/L (98-107); Estimated CRCL calculation 83 ml/min; Estimated Glomerular Filt Rate > 60; Glucose 86 mg/dL (65-110); Potassium 3.2 mmol/L (3.4-5.0); Sodium 133 mmol/L (137-145)
[2022-10-06] MEDS: PANTOPRAZOLE SODIUM IV 40 MG VIAL IV PUSH (09:55)
[2022-10-06] MEDS: buPROPion HCL SR (12 HR) 150 MG TAB PO ×2 (09:56→20:48)
[2022-10-06] MEDS: HYOSCYAMINE SULFATE 0.375 MG TAB.ER.12H PO ×2 (09:56→20:48)
[2022-10-06] MEDS: ATORVASTATIN 40 MG TABLET PO (09:56)
[2022-10-06] MEDS: POTASSIUM CHLORIDE 20 MEQ PACKET (FOR LIQUID) 40 MEQ PO (09:56)
[2022-10-06] MEDS: SODIUM CHLORIDE 0.9% IV 1,000 ML 125 ML IV CONT (09:57)
--- NOTE | 2022-10-06 10:40 | PM.IMPN ---
Progress Note: A&P Assessment and Plan (1) Colitis: Code(s): K52.9 - Noninfective gastroenteritis and colitis, unspecified Status: Acute Assessment and Plan: Continue IV antibiotics Advance diet Likely discharge in 1-2 days (2) Rectal bleeding: Code(s): K62.5 - Hemorrhage of anus and rectum Status: Acute Assessment and Plan: Stabilized. Will recheck a H&H in the morning (3) Dehydration: Code(s): E86.0 - Dehydration Status: Acute Assessment and Plan: Continue IV fluids Subjective Date/time seen: 10/06/22 10:40 Feeling better today. Abdominal pain is improved. Tolerating liquids Exam Narrative: General: Moderately ill appearing female in the semi-Kimbrough position in bed in no acute distress. Weight: 73.6 kg. BMI 27.9. HEENT: Normocephalic, atraumatic. PERRL, EOMI. Sclera anicteric. Tacky mucous membranes. Neck: Supple. Respiratory: Lungs are clear to auscultation bilaterally. Cardiovascular: Regular rate and rhythm with S1-S2. Gastrointestinal: Abdomen is soft and slightly distended with hyperactive bowel sounds. She is tender to light palpation and percussion throughout the abdomen. No guarding or rebound tenderness. Skin: Warm and dry. No rash or lesions on limited exam. Extremities: No cyanosis, clubbing, or edema. Radial and pedal pulses intact. Neurological: Alert. Cranial nerves 2-12 are grossly intact. No gross focal deficits to casual conversation. Psychiatric: Appropriate mood and affect. Objective Data Vital Signs Vital Signs: Vital Signs - 24 hr 10/05/22 14:41 10/05/22 21:42 10/06/22 05:45 Temperature 97.9 F 97.1 F L 97.0 F L Pulse Rate 94 71 72 Respiratory Rate 18 14 14 Blood Pressure 127/65 126/76 122/59 L Pulse Oximetry 74 L 97 96 Intake/Output Intake/Output: Intake & Output 10/03/22 10/04/22 10/05/22 10/06/22 23:59 23:59 23:59 23:59 Intake Total 900 1980 3340 1650 Output Total 1000 2200 1200 Balance 384 901 4202 450 Meds/Results Medications: Active Medications Generic Name Dose Route Start Last Admin Trade Name Freq PRN Reason Stop Dose Admin Acetaminophen 650 mg 10/03/22 23:42 Acetaminophen 325 Mg Tablet PO Q6H PRN Mild Pain (1-3) or Fever Hydrocodone Bitart/Acetaminophen 1 tab 10/05/22 18:06 10/06/22 04:53 Hydrocodone/Acetaminophen (*Crx) 5-325 Mg Tablet PO 1 tab Q8H PRN Administration Pain Rated 4-6 Atorvastatin Calcium 40 mg 10/04/22 09:00 10/06/22 09:56 Atorvastatin 40 Mg Tablet PO 40 mg DAILY BRONSON Administration Bupropion HCl 150 mg 10/04/22 09:00 10/06/22 09:56 Bupropion Hcl Sr (12 Hr) 150 Mg Tab PO 150 mg Q12HR BRONSON Administration Calcium Carbonate 400 mg 10/04/22 15:26 10/04/22 16:41 Calcium Carbonate (Tums) 500 Mg (200 Mg Elemental) PO 400 mg Q6H PRN Administration Indigestion Hyoscyamine 0.375 mg 10/04/22 09:00 10/06/22 09:56 Hyoscyamine Sulfate 0.375 Mg Tab.Er.12h PO 0.375 mg Q12HR BRONSON Administration Levofloxacin/Dextrose 750 mg in 150 mls @ 100 mls/hr 10/05/22 00:00 10/06/22 10:11 Levaquin 750 Mg/D5w 150 Ml IVPB Infused Q24H BRONSON Infusion Metronidazole 500 mg in 100 mls @ 100 mls/hr 10/04/22 05:00 10/06/22 04:54 Flagyl 500 Mg/Iso Soln 100 Ml IVPB 100 mls/hr Q6H BRONSON Administration Sodium Chloride 1,000 mls @ 125 mls/hr 10/03/22 23:15 10/06/22 09:57 Normal Saline Iv IV CONT 125 mls/hr .Q8H BRONSON Administration Morphine Sulfate 4 mg 10/03/22 23:45 10/05/22 21:23 Morphine Sulfate (*Crx) 4 Mg/Ml Inj IV PUSH 4 mg Q4H PRN Administration Pain Rated 7-10 Pantoprazole Sodium 40 mg 10/04/22 09:00 10/06/22 09:55 Pantoprazole Sodium Iv 40 Mg Vial IV PUSH 40 mg QAM BRONSON Administration Prochlorperazine Edisylate 10 mg 10/05/22 20:17 10/05/22 21:23 Prochlorperazine Edisylate 10 Mg/2 Ml Vial IV PUSH 10 mg Q6H PRN Administration Nausea And Vomiting Pr
[2022-10-06 14:00] VITALS: BP 120/50; PULSE 79; RESP 12; TEMP 36.6; O2SAT 94
[2022-10-06] MEDS: metroNIDAZOLE 250 MG TABLET 500 MG PO ×2 (16:49→20:48)
--- NOTE | 2022-10-06 17:12 | WPDGIPROGNO ---
Progress Note: A&P Assessment and Plan (1) Nausea and vomiting in adult: Code(s): R11.2 - Nausea with vomiting, unspecified Status: Acute Assessment and Plan: antiemetics from colitis tolerating diet, still pain but better (2) Rectal bleeding: Code(s): K62.5 - Hemorrhage of anus and rectum Status: Acute Assessment and Plan: resolved from colitis stable h/h (3) Colitis: Code(s): K52.9 - Noninfective gastroenteritis and colitis, unspecified Status: Acute Assessment and Plan: on abx pending stool sample ? ischemic vs infections colonoscopy in 4-6 weeks (4) Leukocytosis: Code(s): D72.829 - Elevated white blood cell count, unspecified Status: Acute Assessment and Plan: resolved (5) Dehydration: Code(s): E86.0 - Dehydration Status: Acute Assessment and Plan: treated Subjective Date/time seen: 10/06/22 17:12 Interval history: no more diarrhea or bleeding, had upper abdominal pain after eating solids but slowly improving Review of Systems Review of Systems: All systems reviewed & are unremarkable except as noted in HPI and below Exam Const: General: comfortable HENMT: Face/Nose/Sinus: Normal nares present Eyes: General: appearance normal, both eyes and all related structures Neck: Neck: supple Resp: Effort & Inspection: normal respiratory effort Cardio: Rate: regular rate Rhythm: regular rhythm GI: GI Palp: Yes Soft to palpation, Yes Tenderness to palpation present (GI) (ttp in upper abdomen, no rebound) and No Guarding due to palpation present (GI) Auscultation: normal bowel sounds Skin: General skin exam: normal color Neuro: Speech: normal speech Motor exam (neuro): 5/5 motor strength present throughout Sensory Exam: normal sensation Extrem: General: normal to inspection Objective Data Vital Signs Vital Signs: Vital Signs - 24 hr 10/05/22 21:42 10/06/22 05:45 10/06/22 09:57 Temperature 97.1 F L 97.0 F L Pulse Rate 71 72 Respiratory Rate 14 14 Blood Pressure 126/76 122/59 L Pulse Oximetry 97 96 Oxygen Delivery Room Air 10/06/22 14:00 Temperature 97.8 F Pulse Rate 79 Respiratory Rate 12 Blood Pressure 120/50 L Pulse Oximetry 94 Oxygen Delivery Intake/Output Intake/Output: Intake & Output 10/03/22 10/04/22 10/05/22 10/06/22 23:59 23:59 23:59 23:59 Intake Total 900 1980 3340 1650 Output Total 1000 2200 1200 Balance 221 687 1528 450 Meds/Results Medications: Active Medications Generic Name Dose Route Start Last Admin Trade Name Freq PRN Reason Stop Dose Admin Acetaminophen 650 mg 10/03/22 23:42 Acetaminophen 325 Mg Tablet PO Q6H PRN Mild Pain (1-3) or Fever Hydrocodone Bitart/Acetaminophen 1 tab 10/05/22 18:06 10/06/22 14:49 Hydrocodone/Acetaminophen (*Crx) 5-325 Mg Tablet PO 1 tab Q8H PRN Administration Pain Rated 4-6 Atorvastatin Calcium 40 mg 10/04/22 09:00 10/06/22 09:56 Atorvastatin 40 Mg Tablet PO 40 mg DAILY BRONSON Administration Bupropion HCl 150 mg 10/04/22 09:00 10/06/22 09:56 Bupropion Hcl Sr (12 Hr) 150 Mg Tab PO 150 mg Q12HR BRONSON Administration Calcium Carbonate 400 mg 10/04/22 15:26 10/04/22 16:41 Calcium Carbonate (Tums) 500 Mg (200 Mg Elemental) PO 400 mg Q6H PRN Administration Indigestion Hyoscyamine 0.375 mg 10/04/22 09:00 10/06/22 09:56 Hyoscyamine Sulfate 0.375 Mg Tab.Er.12h PO 0.375 mg Q12HR BRONSON Administration Sodium Chloride 1,000 mls @ 125 mls/hr 10/03/22 23:15 10/06/22 09:57 Normal Saline Iv IV CONT 125 mls/hr .Q8H BRONSON Administration Levofloxacin 750 mg 10/06/22 21:00 Levofloxacin 750 Mg Tablet PO DAILY@2100 BRONSON Metronidazole 500 mg 10/06/22 14:00 10/06/22 16:49 Metronidazole 250 Mg Tablet PO 500 mg Q8HR BRONSON Administration Morphine Sulfate 4 mg 10/03/22 23:45 10/05/22 21:23 Morphine Sulfate (*Crx) 4 M
--- NOTE | 2022-10-06 19:50 | PC.NURSE ---
Pt continues to have a headache. Pt has had no nausea or vomiting. Pt tolerated diet advancement well. Pt continues to have episodes of dizziness. Pt monitored for any changes in status.
[2022-10-06] MEDS: levoFLOXacin 750 MG TABLET PO (20:48)
[2022-10-06 22:00] VITALS: BP 113/64; PULSE 91; RESP 14; TEMP 36.7; O2SAT 96
[2022-10-07] MEDS: metroNIDAZOLE 250 MG TABLET 500 MG PO ×3 (05:39→21:13)
[2022-10-07 06:00] VITALS: BP 114/64; PULSE 68; RESP 14; TEMP 36.8; O2SAT 98
[2022-10-07 06:33] LABS: Basophils Percent Auto 0.4 % (0.2-1.2); Eosinophils Absolute Auto 0.2 K/mm3 (0-0.3); Eosinophils Percent Auto 2.4 % (0-4.4); Hematocrit 36.2 % (37.0-47.0); Hemoglobin 12.1 g/dL (12.0-15.0); Immature Granulocyte Absolute 0.05 K/mm3 (0.00-0.031); Immature Granulocyte Percent A 0.6 % (0-0.5); Lymphocytes Absolute Auto 1.89 K/mm3 (0.9-3.2); Lymphocytes Percent Auto 22.3 % (18.3-44.2); Mean Corpuscular HGB Conc 33.4 g/dl (32-36); Mean Corpuscular Hemoglobin 31.2 pg (26-34); Mean Corpuscular Volume 93.3 fl (80-100); Mean Platelet Volume 8.6 fl (7.4-10.4); Monocytes Absolute Auto 0.4 K/mm3 (0.1-0.6); Monocytes Percent Auto 5.1 % (2.6-8.5); Neutrophils Absolute Auto 5.9 K/mm3 (1.3-6.7); Neutrophils Percent Auto 69.2 % (45.5-73.1); Platelet Count Result 249 k/mm3 (150-375); Red Blood Count 3.88 M/mm3 (4.2-5.4); Red Cell Distribution Width 13.2 % (11.5-14.5); White Blood Count 8.5 K/mm3 (4.5-10.0)
[2022-10-07 06:47] LABS: Potassium 3.5 mmol/L (3.4-5.0)
[2022-10-07 06:53] LABS: Anion Gap 5 mmol/L (8-16); Blood Urea Nitrogen 10 mg/dL (7-17); Calcium 8.6 mg/dL (8.4-10.2); Carbon Dioxide 26 mmol/L (22-30); Chloride 103 mmol/L (98-107); Estimated CRCL calculation 72 ml/min; Estimated Glomerular Filt Rate > 60; Glucose 107 mg/dL (65-110); Sodium 134 mmol/L (137-145)
[2022-10-07] MEDS: buPROPion HCL SR (12 HR) 150 MG TAB PO ×2 (08:42→21:14)
[2022-10-07] MEDS: ATORVASTATIN 40 MG TABLET PO (08:42)
[2022-10-07] MEDS: HYOSCYAMINE SULFATE 0.375 MG TAB.ER.12H PO ×2 (08:42→21:13)
[2022-10-07] MEDS: CALCIUM CARBONATE (TUMS) 500 MG (200 MG ELEMENTAL) 400 MG PO (08:46)
[2022-10-07] MEDS: DOCUSATE SODIUM 100 MG CAPSULE PO ×2 (10:00→21:12)
[2022-10-07] MEDS: polyethylene glycoL 3350 17 GM POWD.PACK PO (10:00)
[2022-10-07] MEDS: PANTOPRAZOLE 40 MG TABLET PO (10:01)
--- NOTE | 2022-10-07 13:28 | PM.IMPN ---
Progress Note: A&P Assessment and Plan (1) Colitis: Code(s): K52.9 - Noninfective gastroenteritis and colitis, unspecified Status: Acute Assessment and Plan: Continue IV antibiotics Advance diet Likely discharge in 1-2 days 10/07/2022 interval history: 62-year-old female presented with complaint abdominal pain nausea vomiting most likely secondary to colitis being treated levofloxacin and Flagyl patient states her symptoms are improved C was able to eat her breakfast now feels nauseated and has abdominal pain, will monitor I will discharge the patient tomorrow, upon arrival due to the concern for rectal bleeding, which is now resolved her hemoglobin is stable patient was seen by GI and further recommendation to follow. (2) Rectal bleeding: Code(s): K62.5 - Hemorrhage of anus and rectum Status: Acute Assessment and Plan: Stabilized. Will recheck a H&H in the morning (3) Dehydration: Code(s): E86.0 - Dehydration Status: Acute Assessment and Plan: Continue IV fluids Subjective Date/time seen: 10/07/22 13:28 10/07/2022 interval history: 62-year-old female presented with complaint abdominal pain nausea vomiting most likely secondary to colitis being treated levofloxacin and Flagyl patient states her symptoms are improved C was able to eat her breakfast now feels nauseated and has abdominal pain, will monitor I will discharge the patient tomorrow, upon arrival due to the concern for rectal bleeding, which is now resolved her hemoglobin is stable patient was seen by GI and further recommendation to follow. Review of Systems Review of Systems: All systems reviewed & are unremarkable except as noted in HPI and below Exam Narrative: moderately obese Patient is comfortable, NAD HEENT: eyes are clear and none icteric LUNGS: normal respiratory effort ABD: not distended Lower extremities: no edema SKIN: nonjaundiced Neuro: grossly intact. Objective Data Vital Signs Vital Signs: Vital Signs - 24 hr 10/06/22 14:00 10/06/22 22:00 10/07/22 06:00 Temperature 97.8 F 98.1 F 98.2 F Pulse Rate 79 91 68 Respiratory Rate 12 14 14 Blood Pressure 120/50 L 113/64 114/64 Pulse Oximetry 94 96 98 Oxygen Delivery 10/07/22 08:42 Temperature Pulse Rate Respiratory Rate Blood Pressure Pulse Oximetry Oxygen Delivery Room Air Intake/Output Intake/Output: Intake & Output 10/04/22 10/05/22 10/06/22 10/07/22 23:59 23:59 23:59 23:59 Intake Total 1980 3340 2150 750 Output Total 1000 2200 1200 950 Balance 980 1140 950 -200 Meds/Results Medications: Active Medications Generic Name Dose Route Start Last Admin Trade Name Freq PRN Reason Stop Dose Admin Acetaminophen 650 mg 10/03/22 23:42 Acetaminophen 325 Mg Tablet PO Q6H PRN Mild Pain (1-3) or Fever Hydrocodone Bitart/Acetaminophen 1 tab 10/05/22 18:06 10/06/22 14:49 Hydrocodone/Acetaminophen (*Crx) 5-325 Mg Tablet PO 1 tab Q8H PRN Administration Pain Rated 4-6 Atorvastatin Calcium 40 mg 10/04/22 09:00 10/07/22 08:42 Atorvastatin 40 Mg Tablet PO 40 mg DAILY BRONSON Administration Bupropion HCl 150 mg 10/04/22 09:00 10/07/22 08:42 Bupropion Hcl Sr (12 Hr) 150 Mg Tab PO 150 mg Q12HR BRONSON Administration Calcium Carbonate 400 mg 10/04/22 15:26 10/07/22 08:46 Calcium Carbonate (Tums) 500 Mg (200 Mg Elemental) PO 400 mg Q6H PRN Administration Indigestion Docusate Sodium 100 mg 10/07/22 09:00 10/07/22 10:00 Docusate Sodium 100 Mg Capsule PO 100 mg Q12HR BRONSON Administration Hyoscyamine 0.375 mg 10/04/22 09:00 10/07/22 08:42 Hyoscyamine Sulfate 0.375 Mg Tab.Er.12h PO 0.375 mg Q12HR RBONSON Administration Levofloxacin 750 mg 10/06/22 21:00 10/06/22 20:48 Levofloxacin 750 Mg Tablet PO 750 mg DAILY@2100 BRONSON Administration Metronidazole 500 mg 10/06/22 14:00 10/07/22 05:39 Metronidazole 250 Mg Tablet
[2022-10-07 14:00] VITALS: BP 119/78; PULSE 83; RESP 20; TEMP 36.5; O2SAT 100
--- NOTE | 2022-10-07 14:33 | WPDGIPROGNO ---
Progress Note: A&P Assessment and Plan (1) Nausea and vomiting in adult: Code(s): R11.2 - Nausea with vomiting, unspecified Status: Acute Assessment and Plan: antiemetics from colitis tolerating diet, still pain but better egd also outpatient (2) Rectal bleeding: Code(s): K62.5 - Hemorrhage of anus and rectum Status: Acute Assessment and Plan: resolved from colitis stable h/h (3) Colitis: Code(s): K52.9 - Noninfective gastroenteritis and colitis, unspecified Status: Acute Assessment and Plan: on abx, no more BM ? ischemic vs infections colonoscopy in 4-6 weeks (4) Leukocytosis: Code(s): D72.829 - Elevated white blood cell count, unspecified Status: Acute Assessment and Plan: resolved Subjective Date/time seen: 10/07/22 14:33 Interval history: no BM or bleeding, still abdominal pain after eating solid food but overall better Review of Systems Review of Systems: All systems reviewed & are unremarkable except as noted in HPI and below Exam Const: General: comfortable and no acute distress HENMT: Face/Nose/Sinus: Normal nares present Eyes: General: appearance normal, both eyes and all related structures Neck: Neck: no JVD Resp: Auscultation: clear to auscultation bilaterally Cardio: Rate: regular rate Rhythm: regular rhythm GI: Inspection: non-distended GI Palp: Yes Soft to palpation, No Tenderness to palpation present (GI) and No Guarding due to palpation present (GI) Auscultation: normal bowel sounds Skin: General skin exam: normal color Neuro: General: gait normal Speech: normal speech Extrem: General: normal to inspection Psych: Mental Status: mental status grossly normal Objective Data Vital Signs Vital Signs: Vital Signs - 24 hr 10/06/22 22:00 10/07/22 06:00 10/07/22 08:42 Temperature 98.1 F 98.2 F Pulse Rate 91 68 Respiratory Rate 14 14 Blood Pressure 113/64 114/64 Pulse Oximetry 96 98 Oxygen Delivery Room Air Intake/Output Intake/Output: Intake & Output 10/04/22 10/05/22 10/06/22 10/07/22 23:59 23:59 23:59 23:59 Intake Total 1980 3340 2150 750 Output Total 1000 2200 1200 950 Balance 980 1140 950 -200 Meds/Results Medications: Active Medications Generic Name Dose Route Start Last Admin Trade Name Freq PRN Reason Stop Dose Admin Acetaminophen 650 mg 10/03/22 23:42 Acetaminophen 325 Mg Tablet PO Q6H PRN Mild Pain (1-3) or Fever Hydrocodone Bitart/Acetaminophen 1 tab 10/05/22 18:06 10/06/22 14:49 Hydrocodone/Acetaminophen (*Crx) 5-325 Mg Tablet PO 1 tab Q8H PRN Administration Pain Rated 4-6 Atorvastatin Calcium 40 mg 10/04/22 09:00 10/07/22 08:42 Atorvastatin 40 Mg Tablet PO 40 mg DAILY BRONSON Administration Bupropion HCl 150 mg 10/04/22 09:00 10/07/22 08:42 Bupropion Hcl Sr (12 Hr) 150 Mg Tab PO 150 mg Q12HR BRONSON Administration Calcium Carbonate 400 mg 10/04/22 15:26 10/07/22 08:46 Calcium Carbonate (Tums) 500 Mg (200 Mg Elemental) PO 400 mg Q6H PRN Administration Indigestion Docusate Sodium 100 mg 10/07/22 09:00 10/07/22 10:00 Docusate Sodium 100 Mg Capsule PO 100 mg Q12HR BRONSON Administration Hyoscyamine 0.375 mg 10/04/22 09:00 10/07/22 08:42 Hyoscyamine Sulfate 0.375 Mg Tab.Er.12h PO 0.375 mg Q12HR BRONSON Administration Levofloxacin 750 mg 10/06/22 21:00 10/06/22 20:48 Levofloxacin 750 Mg Tablet PO 750 mg DAILY@2100 BRONSON Administration Metronidazole 500 mg 10/06/22 14:00 10/07/22 05:39 Metronidazole 250 Mg Tablet PO 500 mg Q8HR BRONSON Administration Morphine Sulfate 4 mg 10/03/22 23:45 10/05/22 21:23 Morphine Sulfate (*Crx) 4 Mg/Ml Inj IV PUSH 4 mg Q4H PRN Administration Pain Rated 7-10 Pantoprazole Sodium 40 mg 10/07/22 09:00 10/07/22 10:01 Pantoprazole 40 Mg Tablet PO 40 mg QAM BRONSON Administration Polyethylene Glycol 17 gm
[2022-10-07] MEDS: HYDROcodone/acetaminophen (*CRX) 5-325 MG TABLET 1 TAB PO (17:15)
[2022-10-07] MEDS: levoFLOXacin 750 MG TABLET PO (21:12)
[2022-10-07 22:00] VITALS: BP 121/72; PULSE 71; RESP 16; TEMP 36.3; O2SAT 100
[2022-10-08] MEDS: metroNIDAZOLE 250 MG TABLET 500 MG PO ×2 (05:45→13:42)
[2022-10-08] MEDS: HYDROcodone/acetaminophen (*CRX) 5-325 MG TABLET 1 TAB PO (05:46)
[2022-10-08 06:00] VITALS: BP 115/69; PULSE 73; RESP 18; TEMP 36.4; O2SAT 100
--- NOTE | 2022-10-08 09:39 | PM.DS ---
DS: Admitting Diagnosis Discharge Date 10/08/2022 Admitting Diagnosis Abdominal pain, nausea, vomiting, diarrhea. DS: Discharge Diagnosis Discharge Diagnosis (1) Colitis: Code(s): K52.9 - Noninfective gastroenteritis and colitis, unspecified Status: Acute Assessment and Plan: Continue IV antibiotics Advance diet Likely discharge in 1-2 days 10/07/2022 interval history: 62-year-old female presented with complaint abdominal pain nausea vomiting most likely secondary to colitis being treated levofloxacin and Flagyl patient states her symptoms are improved C was able to eat her breakfast now feels nauseated and has abdominal pain, will monitor I will discharge the patient tomorrow, upon arrival due to the concern for rectal bleeding, which is now resolved her hemoglobin is stable patient was seen by GI and further recommendation to follow. (2) Rectal bleeding: Code(s): K62.5 - Hemorrhage of anus and rectum Status: Acute Assessment and Plan: Stabilized. Will recheck a H&H in the morning (3) Dehydration: Code(s): E86.0 - Dehydration Status: Acute Assessment and Plan: Continue IV fluids DS: Summary Hospital Course Reason for hospitalization: Abdominal pain, nausea, vomiting, diarrhea. Narrative: This is a 62-year-old female with GERD and hyperlipidemia presented to the emergency department via EMS from home for evaluation of abdominal pain, nausea, vomiting, and diarrhea. Patient provides the following history. Her symptoms started this morning with diffuse cramping abdominal pain followed by innumerable bouts of watery diarrhea which later turned bloody. She has also had significant nausea, dry heaves, and a small amount of emesis tinged with bright red blood. She has not had a fever to her knowledge. She denies recent antibiotic use, travel, and sick contacts. No personal history of C diff or inflammatory bowel disease. She has not cooked rum eat recently. Temperature was normal on arrival to the ED and her blood pressures have been stable. Pertinent labs include a WBC count of 16.0, sodium 136, potassium 4.3, carbon dioxide 26, BUN 19, creatinine 0.0, lactic acid 1.3, CRP 1.4. LFTs and lipase were within normal limits. She was negative for influenza and COVID. CT of the abdomen and pelvis showed findings of diffuse colitis involving a portion of the transverse and descending colon. She has been started on metronidazole and levofloxacin and she is being admitted in this setting for further treatment. Hospital Course: 62-year-old female presented with complaint abdominal pain nausea vomiting most likely secondary to colitis being treated levofloxacin and Flagyl patient states her symptoms are improved she was able to? eat her breakfast now feels nauseated and has abdominal pain,? will monitor I more day will discharge the patient tomorrow,? upon arrival due to the concern for rectal bleeding, which? is now resolved? her hemoglobin is stable patient was seen by GI and further recommendation to follow. Today patient is clinically stable has no complaints will discharge the patient today. Time Spent with Patient Time attestation: Total time spent providing and/or coordinating discharge services: Exam Narrative: moderately obese Patient is comfortable, NAD HEENT: eyes are clear and none icteric LUNGS: normal respiratory effort ABD: not distended Lower extremities: no edema SKIN: nonjaundiced Neuro: grossly intact. Discharge Plan Discharge Attending physician on discharge: Torsten Horan Consulting providers: Timo Tenorio ; Kevin Rivera MD ; Kwame Carlton ; Tyrese Camargo ; Susana Agosto ; Luiz Pike ; Grant Borja V. Discharging Clinician: Torsten Horan Patient Disposition: Home, Self-Care Activity: as tolerated Diet: heart healthy Discharge Instructions: Patient to follow up with GI and her primary care provid
[2022-10-08] MEDS: buPROPion HCL SR (12 HR) 150 MG TAB PO (09:46)
[2022-10-08] MEDS: DOCUSATE SODIUM 100 MG CAPSULE PO (09:46)
[2022-10-08] MEDS: PANTOPRAZOLE 40 MG TABLET PO (09:46)
[2022-10-08] MEDS: ATORVASTATIN 40 MG TABLET PO (09:47)
[2022-10-08] MEDS: HYOSCYAMINE SULFATE 0.375 MG TAB.ER.12H PO (09:47)
--- NOTE | 2022-10-08 12:32 | WPDGIPROGNO ---
Progress Note: A&P Assessment and Plan (1) Nausea and vomiting in adult: Code(s): R11.2 - Nausea with vomiting, unspecified Status: Acute Assessment and Plan: much better and eating more will do egd as outpatient (my office will set up) she is going home (2) Rectal bleeding: Code(s): K62.5 - Hemorrhage of anus and rectum Status: Acute Assessment and Plan: improved from colitis stable h/h (3) Colitis: Code(s): K52.9 - Noninfective gastroenteritis and colitis, unspecified Status: Acute Assessment and Plan: better ? ischemic vs infections colonoscopy in 4-6 weeks Subjective Date/time seen: 10/08/22 12:32 Interval history: doing better, last BM with only tinge of blood, she is going home today Review of Systems Review of Systems: All systems reviewed & are unremarkable except as noted in HPI and below Exam Const: General: comfortable and no acute distress HENMT: Face/Nose/Sinus: Normal nares present Eyes: General: appearance normal, both eyes and all related structures Neck: Neck: no JVD Resp: Auscultation: clear to auscultation bilaterally Cardio: Rate: regular rate Rhythm: regular rhythm GI: Inspection: non-distended GI Palp: Yes Soft to palpation, No Tenderness to palpation present (GI) and No Guarding due to palpation present (GI) Auscultation: normal bowel sounds Skin: General skin exam: normal color Neuro: General: gait normal Speech: normal speech Extrem: General: normal to inspection Psych: Mental Status: mental status grossly normal Objective Data Vital Signs Vital Signs: Vital Signs - 24 hr 10/07/22 14:00 10/07/22 22:00 10/08/22 06:00 Temperature 97.7 F 97.4 F L 97.5 F L Pulse Rate 83 71 73 Respiratory Rate 20 16 18 Blood Pressure 119/78 121/72 115/69 Pulse Oximetry 100 100 100 Oxygen Delivery 10/08/22 09:46 Temperature Pulse Rate Respiratory Rate Blood Pressure Pulse Oximetry Oxygen Delivery Room Air Intake/Output Intake/Output: Intake & Output 10/05/22 10/06/22 10/07/22 10/08/22 23:59 23:59 23:59 23:59 Intake Total 3340 2150 750 300 Output Total 2200 1200 950 Balance 1140 950 -200 300 Meds/Results Medications: Active Medications Generic Name Dose Route Start Last Admin Trade Name Valdezq PRN Reason Stop Dose Admin Acetaminophen 650 mg 10/03/22 23:42 Acetaminophen 325 Mg Tablet PO Q6H PRN Mild Pain (1-3) or Fever Hydrocodone Bitart/Acetaminophen 1 tab 10/05/22 18:06 10/08/22 05:46 Hydrocodone/Acetaminophen (*Crx) 5-325 Mg Tablet PO 1 tab Q8H PRN Administration Pain Rated 4-6 Atorvastatin Calcium 40 mg 10/04/22 09:00 10/08/22 09:47 Atorvastatin 40 Mg Tablet PO 40 mg DAILY BRONSON Administration Bupropion HCl 150 mg 10/04/22 09:00 10/08/22 09:46 Bupropion Hcl Sr (12 Hr) 150 Mg Tab PO 150 mg Q12HR BRONSON Administration Calcium Carbonate 400 mg 10/04/22 15:26 10/07/22 08:46 Calcium Carbonate (Tums) 500 Mg (200 Mg Elemental) PO 400 mg Q6H PRN Administration Indigestion Docusate Sodium 100 mg 10/07/22 09:00 10/08/22 09:46 Docusate Sodium 100 Mg Capsule PO 100 mg Q12HR BRONSON Administration Hyoscyamine 0.375 mg 10/04/22 09:00 10/08/22 09:47 Hyoscyamine Sulfate 0.375 Mg Tab.Er.12h PO 0.375 mg Q12HR BRONSON Administration Levofloxacin 750 mg 10/06/22 21:00 10/07/22 21:12 Levofloxacin 750 Mg Tablet PO 750 mg DAILY@2100 BRONSON Administration Metronidazole 500 mg 10/06/22 14:00 10/08/22 05:45 Metronidazole 250 Mg Tablet PO 500 mg Q8HR BRONSON Administration Morphine Sulfate 4 mg 10/03/22 23:45 10/05/22 21:23 Morphine Sulfate (*Crx) 4 Mg/Ml Inj IV PUSH 4 mg Q4H PRN Administration Pain Rated 7-10 Pantoprazole Sodium 40 mg 10/07/22 09:00 10/08/22 09:46 Pantoprazole 40 Mg Tablet PO 40 mg QAM BRONSON Administration Polyethylene Glycol 17 gm 10/07/22 09:00 10/07/22 10
--- NOTE | 2022-10-08 14:00 | PCCCNOTE ---
On 10/08/22, the student, [Shiloh Hughes], provided care and completed [facility] documentation on this patient. I have reviewed the student's documentation and agree with the findings.
--- NOTE | 2022-10-08 15:11 | PC.NURSE ---
Pt is an A&O4 female who is discharging home with . Pt has had nausea, vomiting, and diarrhea while she has been here. Pt has had no complaints of pain today and participates and contributes in plan of care. Pt experienced scant blood in her stool this AM that was not seen by nurse. Pt was educated by physician that this is a normal finding due to her condition. Pt was educated on discharge instructions and has been compliant with care. Pt was monitored for any changes in status.
== END 2022-10-08 15:05 | disposition home or self-care (01) | DRG 392 ==
LOC: ANHED 23:04 → ANH3MEDSUR 10-04 00:18
PROVIDERS: Chiropractor; Physician Assistant; Admitting Provider Internal Medicine; Emergency Provider Emergency Medicine; Visit Provider Family Medicine
DX: K52.9 Noninfective gastroenteritis and colitis, unspecified (principal); K62.5 Hemorrhage of anus and rectum; E86.0 Dehydration; K21.9 Gastro-esophageal reflux disease without esophagitis; E78.5 Hyperlipidemia, unspecified; D72.829 Elevated white blood cell count, unspecified; F41.8 Other specified anxiety disorders; K58.9 Irritable bowel syndrome, unspecified; Z20.822 Contact with and (suspected) exposure to COVID-19
CPT/HCPCS: 36415; 74018; 74177; 80048; 80053; 81001; 83605; 83690; 83735; 84439; 84443; 84480; 85014; 85018; 85025; 85610; 85730; 86140; 86850; 86900; 86901; 87086; 87088; 87636; 96365; 96366; 96367; 96375; 96376; 99285; A9270; C9113; G0378; J0131; J0780; J1956; J2060; J2270; J2405; J2550; J7030; Q9967

== ENCOUNTER 2022-11-03 08:49 | Day surgery (SDC) | payer OTHER, SELFPAY ==
[2022-10-22 14:19] VITALS: BMI 28.9
[2022-10-29 08:57] VITALS: BMI 28.3
[2022-11-03 13:30] VITALS: BP 124/74; PULSE 88; RESP 16; TEMP 37.1; O2SAT 100
[2022-11-03 13:33] VITALS: BMI 27.4
[2022-11-03] MEDS: LACTATED RINGERS 1,000 ML 150 ML IV CONT (14:37)
--- NOTE | 2022-11-03 15:23 | WPDANESEPPF ---
Anes - Initial Pre Proc Eval Procedure: Operation Date: 11/03/22 14:30 Proposed Procedures p Esophagogastroduodenoscopy - Timo Tenorio MD s Diagnostic Colonoscopy - Timo Tenorio MD Date/Time: 11/03/22 15:23 Surgeon: Timo Tenorio MD Pre Op Diagnosis: Nausea, Vomitting and Colitis Patient Data Age: 62 Gender: F Height: 1.63 m Weight: 72.55 kg Last Vital Signs Temp 37.1 C 11/03/22 13:30 Pulse 88 11/03/22 13:30 Resp 16 11/03/22 13:30 BP 124/74 11/03/22 13:30 Pulse Ox 100 11/03/22 13:30 O2 Del Method Room Air 11/03/22 13:30 Allergies Allergy/AdvReac Type Severity Reaction Status Date / Time adhesive tape AdvReac Severe Rash Verified 10/29/22 09:02 Home Medications Medication Instructions Recorded Confirmed Type atorvastatin 40 mg tablet 40 mg PO DAILY 10/04/22 11/03/22 History bupropion HCl 150 mg tablet,12 hr 150 mg PO BID 10/04/22 11/03/22 History sustained-release (Wellbutrin SR) hyoscyamine sulfate 0.375 mg 0.375 mg PO BID 10/04/22 10/29/22 History tablet,extended release,12 hr omeprazole 20 mg capsule,delayed 20 mg PO DAILY 10/04/22 10/29/22 History release docusate sodium 100 mg capsule 100 mg PO Q12HR #60 caps 10/08/22 10/29/22 Rx hydrocodone 5 mg-acetaminophen 325 1 tablet PO Q8H PRN Pain Rated 4-6 10/08/22 10/29/22 Rx mg tablet #10 tabs metronidazole 250 mg tablet 500 mg PO Q8HR #15 tabs 10/08/22 10/29/22 Rx polyethylene glycol 3350 17 gram 17 g PO QAM PRN Constipation #30 ea 10/08/22 10/29/22 Rx oral powder packet (Miralax) Patient hx anesthesia problems: none Family hx anesthesia problems: none Results Review: All pre-operative results and documents have been reviewed as part of the pre-operative evaluation. [facility] Past Medical History Medical History Constipation Depression with anxiety Gastroesophageal reflux disease Irritable bowel syndrome Nausea Nausea and vomiting in adult Surgical History Surgical History History of foot surgery Social History Social History Social History: The patient lives in [place] with her . Retired from working for [employer]. Nonsmoker. No alcohol or illicit substance abuse. She designates her as her surrogate decision maker and she wishes to be a full code. Smoking status: Never smoker Second hand tobacco smoke exposure: No Alcohol intake: never Substance use: never Substance use type: does not use Lack of Transportation: No Lack of Food: Never True Current Housing: I Have Housing Concerned About Future Housing: No Difficulty Paying Gas/Electric Bills: No Difficulty Paying for Meds: No Currently Unemployed: No Education: Decline to Answer Difficulty w/ Childcare or Family Care: No Living arrangements: with family Spiritual care concerns: No Anes - Eval Final PreProcedure Day of Procedure 11/03/22 15:23 Patient weight: overweight Heart: regular rate and rhythm Lungs: clear to auscultation Airway: Mallampati scale class II Neurological: alert and oriented Last oral intake: >/= 8 hours ASA classification: III Emergent: no Anesthetic plan: proceed Anesthesia type and monitoring: general GIVS and standard monitoring Results Review: All pre-operative results and documents have been reviewed as part of the pre-operative evaluation. Informed Consent: The patient's anesthetic plan and its attendant risks and benefits were discussed with the patient/family/POA. Questions were solicited and answers provided to the satisfaction of the patient/family/POA.
[2022-11-03] MEDS: ONDANSETRON INJ 4 MG/2 ML VIAL IV PUSH (15:27)
--- NOTE | 2022-11-03 16:02 | PM.HPGS ---
History of Present Illness History of Present Illness Consent: Risks, benefits, and alternatives have been discussed and questions answered. Patient agrees to proceed with procedure. Chief complaint: Nausea, Vomitting and Colitis Narrative: Lottie Crisostomo is a 62 year old female with hospitalization for n/v and colitis- back to her baseline now, constipation but doing quite well with colace and miralax. Last colonoscopy 5 years ago. Review of Systems Constitutional: Constitutional: Denies headache(s) and Denies weakness Eyes: Eyes: Denies blurry vision ENT: Reports Normal hearing present, Denies headache(s) and Denies neck pain Cardiovascular: Cardiovascular: Denies chest pain and Denies dyspnea Respiratory: Respiratory: Denies dyspnea Gastrointestinal: Gastrointestinal: Reports no additional gastrointestinal complaints Genitourinary: Genitourinary: Denies dysuria Musculoskeletal: Musculoskeletal: Denies neck pain Integumentary/Breasts: Skin/Breast: Denies dry skin Neurologic: Reports Normal hearing present, Denies headache(s) and Denies weakness Psychiatric: Psychiatric: Denies anxiety Endocrine: Endocrine: Denies change in body appearance Hematologic/Lymphatic: Hematologic/Lymphatic: Denies easy bleeding Allergic/Immunologic: Allergic/Immunologic: Denies urticaria PMFSH Past Medical History Medical History Constipation Depression with anxiety Gastroesophageal reflux disease Irritable bowel syndrome Nausea Nausea and vomiting in adult Surgical History Surgical History History of foot surgery Social History Social History Social History: The patient lives in [place] with her . Retired from working for [employer]. Nonsmoker. No alcohol or illicit substance abuse. She designates her as her surrogate decision maker and she wishes to be a full code. Smoking status: Never smoker Second hand tobacco smoke exposure: No Alcohol intake: never Substance use: never Substance use type: does not use Lack of Transportation: No Lack of Food: Never True Current Housing: I Have Housing Concerned About Future Housing: No Difficulty Paying Gas/Electric Bills: No Difficulty Paying for Meds: No Currently Unemployed: No Education: Decline to Answer Difficulty w/ Childcare or Family Care: No Living arrangements: with family Spiritual care concerns: No Meds Home Medications and Allergies Home Medications Medication Instructions Recorded Confirmed Type atorvastatin 40 mg tablet 40 mg PO DAILY 10/04/22 11/03/22 History bupropion HCl 150 mg tablet,12 hr 150 mg PO BID 10/04/22 11/03/22 History sustained-release (Wellbutrin SR) hyoscyamine sulfate 0.375 mg 0.375 mg PO BID 10/04/22 10/29/22 History tablet,extended release,12 hr omeprazole 20 mg capsule,delayed 20 mg PO DAILY 10/04/22 10/29/22 History release docusate sodium 100 mg capsule 100 mg PO Q12HR #60 caps 10/08/22 10/29/22 Rx hydrocodone 5 mg-acetaminophen 325 1 tablet PO Q8H PRN Pain Rated 4-6 10/08/22 10/29/22 Rx mg tablet #10 tabs metronidazole 250 mg tablet 500 mg PO Q8HR #15 tabs 10/08/22 10/29/22 Rx polyethylene glycol 3350 17 gram 17 g PO QAM PRN Constipation #30 ea 10/08/22 10/29/22 Rx oral powder packet (Miralax) Allergies Allergy/AdvReac Type Severity Reaction Status Date / Time adhesive tape AdvReac Severe Rash Verified 10/29/22 09:02 Vital Signs Vital Signs - 24 hr 11/03/22 13:30 Temperature 98.8 F Pulse Rate 88 Respiratory Rate 16 Blood Pressure 124/74 Pulse Oximetry 100 Oxygen Delivery Room Air Exam Const: General: comfortable and no acute distress HENMT: Face/Nose/Sinus: Normal nares present Eyes: General: appearance normal, both eyes and all related structures Neck: Ne
[2022-11-03 16:36] VITALS: BP 131/81; PULSE 84; RESP 16; O2SAT 98
[2022-11-03 16:46] VITALS: BP 115/85; PULSE 79; RESP 16; O2SAT 99
[2022-11-03 16:56] VITALS: BP 98/52; PULSE 72; RESP 16; O2SAT 100
[2022-11-03] MEDS: KETOROLAC 30 MG/ML VIAL (*BKC) IV PUSH (17:05)
[2022-11-03 17:10] VITALS: BP 108/52; PULSE 80; RESP 18; O2SAT 100
--- NOTE | 2022-11-03 17:15 | SUR.PHASEII ---
1636; PT INTO [facility]. PT C/O 10/10 PAIN TO LOW ABDOMEN. PT RUBBING ACROSS LOW ABDOMEN. ABDOMEN SOFT, NONTENDER TO PALPATION. ASSISTED PT TO LAY ON RIGHT SIDE WITH KNEES DRAWN UP. SPOUSE PORSCHE AT BEDSIDE.
--- NOTE | 2022-11-03 17:24 | SUR.PHASEII ---
1640; DR LOCKETT AT BEDSIDE SPEAKING TO PT AND SPOUSE. PT WRITHING IN PAIN. PT C/O LOW ABDOMEN PAIN AT 10/10. PT REPEATING THIS IS WHAT HAPPENED THE LAST TIME I HAD A COLONOSCOPY . I HAD TERRIBLE PAIN AND THEY GAVE ME SOMETHING FOR PAIN 1645; DR LOCKETT INSTRUCTED STAFF TO TRY TO WALK PT. PT STATES SHE IS UNABLE TO WALK. TOO MUCH PAIN 1650; NOTIFIED DR LOCKETT OF PT'S CONTINUING PAIN. HE WILL COME SEE PT AGAIN. 165; DR LOCKETT IN ROOM. PT CONTINUES TO WRITHE IN PAIN. DR LOCKETT ASSESSING PT'S ABDOMEN. VERBAL ORDER FOR TORADOL 30MG IVP X1. 1706; KETOROLAC GIVEN IV,. 1720; PT DRINKING WHITE SODA AND EATING SALTINE CRACKERS. STATES PAIN DOWN FROM 10/10 TO 5/10 1725; DR LOCKETT IN ROOM SPEAKING TO PT. PT STATES SHES FEELING BETTER.
[2022-11-03 17:25] VITALS: BP 108/48; PULSE 70; RESP 18; O2SAT 100
--- NOTE | 2022-11-03 17:50 | SUR.PHASEII ---
1745; PT AWAKE AND ALERT. LAYING ON BACK. STATES PAIN IS GONE NOW. PT EATING AND DRINKING. SHE TOOK HER OMEPRAZOLE FROM HOME.
== END 2022-11-03 17:55 | disposition home or self-care (01) ==
PROVIDERS: Visit Provider Internal Medicine Gastroenterology
PROC: 0DJ08ZZ Inspection of Upper Intestinal Tract, Via Natural or Artificial Opening Endoscopic (ICD-10-PCS; CPT 43235; principal; 2022-11-03 14:30)
PROC: 0DJD8ZZ Inspection of Lower Intestinal Tract, Via Natural or Artificial Opening Endoscopic (ICD-10-PCS; CPT 45378; 2022-11-03 14:30)
DX: R11.2 Nausea with vomiting, unspecified (principal)
CPT/HCPCS: 45378; 43239

== ENCOUNTER 2022-11-03 09:00 | Outpatient (NON) | payer OTHER, SELFPAY | END 2022-11-03 09:01 | disposition home or self-care (01) | LOC: ANHLAB 11-04 09:33 | PROVIDERS: Visit Provider Internal Medicine Gastroenterology | DX: R11.2 Nausea with vomiting, unspecified (principal) | CPT/HCPCS: 88305 ==

== ENCOUNTER 2023-11-04 09:25 | Outpatient (CLI) | payer OTHER, SELFPAY ==
--- NOTE | ~2023-11-04 | MR_ITS ---
EXAMINATION: MR lumbar spine wo con DATE: 11/04/2023 10:02 INDICATION: Low back pain. Left-sided sciatica. TECHNIQUE: Magnetic resonance imaging (MRI) of the lumbar spine was performed without intravenous con trast. Sequences included sagittal T2-weighted FSE, sagittal T2-weighted FS FSE, sagittal T1-weighted FSE, and axial T2-weighted FSE. COMPARISON: None FINDINGS: There is 9 degrees levocurvature of lumbar spine. There is 3 mm retrolisthesis of L2 on L3, 3 mm anterolisthesis of L3 on L4, and 4 mm anterolisthesis of L4 on L5. Vertebral body heights are n ormal. There is moderately decreased disc height at L2-L3, mildly decreased disc height at L3-L4, sev erely decreased disc height at L4-L5, and mildly decreased disc height at L5-S1. The distal spinal co rd signal intensity is normal. The conus medullaris is at T12-L1. The following disc levels are speci fically discussed: L1-L2: There is a central protrusion. There is severe right and mild left facet joint osteoarthritis. There is no neural foraminal stenosis. There is mild central canal stenosis. L2-L3: The disc is bulging with superimposed left central extrusion. There is severe bilateral facet joint osteoarthritis. There is moderate right and mild left neural foraminal stenosis. There is mild central canal stenosis. L3-L4: The disc is bulging and has an annular fissure. There is severe bilateral facet joint osteoart hritis. There is mild bilateral neural foraminal stenosis. There is severe central canal stenosis. L4-L5: The disc is bulging and has an annular fissure. There is severe bilateral facet joint osteoart hritis. There is mild bilateral neural foraminal stenosis. There is mild central canal stenosis. L5-S1: The disc is bulging and has an annular fissure. There is severe bilateral facet joint osteoart hritis. There is mild bilateral neural foraminal stenosis. There is mild central canal stenosis. IMPRESSION: 1. Severe lumbar spondylosis. Reviewed, dictated and finalized at location A.
== END 2023-11-04 09:26 ==
PROVIDERS: Visit Provider Chiropractor
DX: M47.896 Other spondylosis, lumbar region (principal)
CPT/HCPCS: 72148

== ENCOUNTER 2023-11-18 13:56 | Outpatient (CLI) | payer OTHER, SELFPAY ==
--- NOTE | ~2023-11-18 | XR_ITS ---
EXAMINATION: XR lumbar spine min 4V DATE: 11/18/2023 14:22 INDICATION: Spinal stenosis, lumbar region with neurogenic claudication. TECHNIQUE: 5 views of lumbar spine including standing views and flexion and extension views were obta ined. COMPARISON: Lumbar spine MRI 11/04/2023 FINDINGS: There is 3 mm anterolisthesis of L3 on L4 and L4 on L5. There is no abnormal motion with fl exion or extension. There is 13 degrees levoscoliosis of lumbar spine. Vertebral body heights are nor mal. There is moderately decreased disc height at L2-L3, mildly decreased disc height at L3-L4, and s everely decreased disc height at L4-L5. There is multilevel severe facet joint osteoarthritis. IMPRESSION: 1. Severe lumbar spondylosis. 2. Lumbar levoscoliosis. Reviewed, dictated and finalized at location A.
== END 2023-11-18 13:57 ==
LOC: MICIMG 14:00
PROVIDERS: Visit Provider Physician Assistant
DX: M48.062 Spinal stenosis, lumbar region with neurogenic claudication (principal); M47.896 Other spondylosis, lumbar region
CPT/HCPCS: 72110

== ENCOUNTER 2024-02-21 11:00 | Emergency (ER) | payer OTHER, SELFPAY ==
--- NOTE | ~2024-02-21 | CT_ITS ---
EXAMINATION: CT cervical spine wo con DATE: 02/21/2024 12:03 INDICATION: Trauma with neck pain post fall with posterior head injury 2 days prior. TECHNIQUE: Computed tomography (CT) of the cervical spine was performed without intravenous contrast. Automated exposure control and iterative reconstruction technique were employed. The dose-length pro duct was 173.46 mGy-cm. COMPARISON: None FINDINGS: Slight reversal of the normal cervical lordosis which could be positional or due to muscle spasm. No spondylolisthesis or facet subluxation. Vertebral body heights are normal. No fracture. Moderate disc height loss with moderate to severe uncovertebral osteoarthritis and endplate osteophytes at C4-C5, C5-C6 and C6-C7. Mild disc height loss at C2-C3 and C3-C4 with additional moderate uncovertebral oste oarthritis on the right at C3-C4. Mild uncovertebral osteoarthritis the remaining levels. Severe face t osteoarthritis on the right at left at C2-C3, and the right at C3-C4 and bilaterally T2-T3. Moderat e facet osteoarthritis on the left at C3-C4 and bilaterally at T1-T2. Mild facet osteoarthritis the r emaining cervical levels. There is multilevel neural foraminal stenosis, moderate on the right at C3- C4 and bilaterally at C5-C6 and C6-C7. Mild neural from stenosis at many of the remaining neural fora pramod. Disc bulge at C4-C5 and posterior disc osteophyte complex at C5-C6 and C6-C7 contributing to mi ld central canal stenosis at each of these levels. Cervical soft tissues are unremarkable. Visualized apices of the lungs are clear. IMPRESSION: 1. Moderate cervical spondylosis with slight reversal of the normal cervical lordosis which could be positional or due to muscle spasm. No acute osseous abnormality. Reviewed, dictated and finalized at location A. IMPRESSION: 1. Moderate cervical spondylosis with slight reversal of the normal cervical lo rdosis which could be positional or due to muscle spasm. No acute osseous abnor mality.
--- NOTE | ~2024-02-21 | CT_ITS ---
EXAMINATION: CT brain wo con DATE: 02/21/2024 12:01 INDICATION: Trauma with posterior head injury TECHNIQUE: Computed tomography (CT) of the head was performed without intravenous contrast. Sagittal and coronal reconstructions were performed. The mA was adjusted according to patient size. Iterative reconstruction technique was employed. The dose-length product was 605.33 mGy-cm. COMPARISON: None FINDINGS: No fracture. No acute intracranial hemorrhage, acute infarction or abnormal extra axial fluid collect ion. Ventricles are symmetric with normal anatomic variant stable septum pellucidum and vergae. No ma ss/mass effect. Small left mastoid effusion. The orbitsand paranasal sinuses are normal. IMPRESSION: 1. No fracture or acute intracranial process. Reviewed, dictated and finalized at location A.
[2024-02-21 11:13] VITALS: BP 107/78; PULSE 88; RESP 20; TEMP 36.3; O2SAT 97
[2024-02-21] MEDS: KETOROLAC (*BKC) 60 MG/2 ML VIAL IM (12:06)
--- NOTE | 2024-02-21 12:32 | ED.FALL ---
HPI - Fall General Chief Complaint: Fall Stated Complaint: FALL Time Seen by Provider: 02/21/24 11:36 History of Present Illness HPI Narrative: Patient is a 63-year-old female who presents ER with neck pain and headache. Patient had a fall down 6 stairs over the weekend. No LOC. She is not on blood thinners. She does have a contusion to the right hip. She is able to ambulate. She reports her knee occasionally goes out due to some spinal issues that she is due to have surgery on. No new lower extremity weakness or numbness. No additional concerns. Related Data Home Medications Medication Instructions Recorded Confirmed bupropion HCl 150 mg tablet,12 hr 150 mg PO BID 10/04/22 11/17/23 sustained-release (Wellbutrin SR) hyoscyamine sulfate 0.375 mg 0.375 mg PO BID 10/04/22 11/17/23 tablet,extended release,12 hr omeprazole 20 mg capsule,delayed 20 mg PO DAILY 10/04/22 11/17/23 release rosuvastatin 20 mg tablet 20 mg PO DAILY 01/05/24 Allergies Allergy/AdvReac Type Severity Reaction Status Date / Time adhesive tape AdvReac Severe Rash Verified 02/21/24 11:28 Review of Systems Review of Systems: All systems reviewed & are unremarkable except as noted in HPI and below Constitutional: Constitutional: Reports no additional constitutional complaints Musculoskeletal: Musculoskeletal: Reports myalgias, Denies arthralgias and Denies joint swelling Integumentary/Breasts: Skin/Breast: Denies pruritus and Denies erythema Comments: Bruising right hip Neurologic: Reports system reviewed and no additional complaints, except as documented [facility] Past Medical History Medical History Constipation Depression with anxiety Gastroesophageal reflux disease Irritable bowel syndrome Nausea Nausea and vomiting in adult Surgical History Surgical History History of foot surgery Family History Family History Father Heart disease Alcoholism Mother Depression Thyroid disorder Anxiety Sibling Depression Anxiety Social History Social History Social History: The patient lives in [place] with her . Retired from working for [employer] stations. Nonsmoker. No alcohol or illicit substance abuse. She designates her as her surrogate decision maker and she wishes to be a full code. Smoking status: Never smoker Second hand tobacco smoke exposure: No Alcohol intake: current Substance use: never Substance use type: does not use Do You Feel Safe in your Home?: Yes Lack of Transportation: No Lack of Food: Never True Current Housing: I Have Housing Concerned About Future Housing: No Difficulty Paying Gas/Electric Bills: No Difficulty Paying for Meds: No Currently Unemployed: No Education: Bachelor's Degree Difficulty w/ Childcare or Family Care: No Living arrangements: with family Spiritual care concerns: No Exam Narrative: GENERAL: Well-appearing, well-nourished, and in no acute distress. HEAD: Normocephalic, atraumatic. ENT: Mucous membranes moist. NECK: Supple. no midline tenderness of the cervical spine. Normal range of motion. CHEST: Clear to auscultation. No respiratory distress. HEART: Regular rate and rhythm. Normal peripheral pulses. EXTREMITIES: Normal range of motion. No edema. SKIN: Warm, dry, no rash. NEURO: Alert and oriented x3. PSYCH: Normal mood and affect. Course Course Emergency Course: Patient resting comfortably. Toradol for discomfort. Informed of results. Discharged with muscle relaxers and anti-inflammatories. Vital Signs Vital signs: Vital Signs Temperature 97.4 F L 02/21/24 11:13 Pulse Rate 88 02/21/24 11:13 Respiratory Rate 20 02/21/24 11:13 Blood Pressure 107/78 0
[2024-02-21 12:49] VITALS: BP 116/64; PULSE 72; RESP 15; TEMP 36.7; O2SAT 100
== END 2024-02-21 12:50 | disposition home or self-care (01) ==
PROVIDERS: Emergency Provider Emergency Medicine; PCP Internal Medicine Medical Oncology
DX: S16.1XXA Strain of muscle, fascia and tendon at neck level, initial encounter (principal); S30.0XXA Contusion of lower back and pelvis, initial encounter; F41.8 Other specified anxiety disorders; K21.9 Gastro-esophageal reflux disease without esophagitis; K58.9 Irritable bowel syndrome, unspecified; Z79.899 Other long term (current) drug therapy; M47.812 Spondylosis without myelopathy or radiculopathy, cervical region; W10.9XXA Fall (on) (from) unspecified stairs and steps, initial encounter
CPT/HCPCS: 70450; 72125; 96372; 99284; J1885

== ENCOUNTER 2024-12-08 12:51 | Outpatient (CLI) | payer OTHER, SELFPAY ==
--- NOTE | ~2024-12-08 | MM_ITS ---
EXAMINATION: MM screening lucian BI w brett HISTORY: Screening TECHNIQUE: Craniocaudal and mediolateral oblique 3-D tomosynthesis images were obtained and synthetic 2-D images were generated. CAD analysis was submitted and interpreted. COMPARISON: No prior mammogram is available for comparison at this institution. BREAST PARENCHYMAL COMPOSITION: Not dense: There are scattered areas of fibroglandular density. FINDINGS: There is no evidence of suspicious mass, calcification, or architectural distortion to sugg est malignancy in either breast. There has been no suspicious interval change. IMPRESSION: 1. No mammographic evidence of malignancy. 2. Recommend routine screening mammography in one year. BI-RADS Category 1: Negative Reviewed, dictated and finalized at location A.
--- OUTSIDE RECORDS SUMMARY | 2024-12-09 13:32 | XMS_ITS | Clinical Summary ---
Author Organization [facility] Address [address] [place] [address] Phone Care Team Providers Care Data Solutions Architect Name Role Phone Kevin Rivera MD Primary Care Provider Allergies No known active allergies Medications buPROPion SR 12 hour (WELLBUTRIN-SR) 150 mg Oral tablet Take 150 mg by mouth 2 times daily. Active atorvastatin (LIPITOR) 40 mg Oral tablet Take 40 mg by mouth Daily LATE. Active triamterene-hydr ochlorothiazide (DYAZIDE) 37.5-25 mg Oral capsule Take 1 Cap by mouth daily french comber. Active hyoscyamine SR 12 hour (LEVBID) 0.375 mg Oral tablet Take 0.375 mg by mouth every 12 hours as needed. Active meclizine (ANTIVERT) 25 mg Oral tablet Take 1 Tab by mouth 3 times daily as needed for Dizziness. 30 Tab None 07/24/2011 Active Social History Tobacco Use Types Packs/Day Years Used Date Smoking Tobacco: Never Alcohol Use Standard Drinks/Week Comments Yes 0 (1 standard drink = 0.6 oz pur e alcohol) social Comments No Sex and Gender Information Value Date Recorded Sex Assigned at Not on file Legal Sex Female 6:06 AM TELEPHONE INTERCEPTOR OPERATOR Gender Identity Not on file Sexual Orientation Not on file Last Filed Vital Signs Vital Sign Reading Time Taken Comments Blood Pressure 113/76 07/24/2011 7:41 PM TELEPHONE INTERCEPTOR OPERATOR Pulse 76 07/24/2011 7:41 PM TELEPHONE INTERCEPTOR OPERATOR Temperature 36.7 C (98 F) 07/24/2011 3:00 PM TELEPHONE INTERCEPTOR OPERATOR Respiratory Rate 16 07/24/2011 3:19 PM TELEPHONE INTERCEPTOR OPERATOR Oxygen Saturation 100% 07/24/2011 7:41 PM TELEPHONE INTERCEPTOR OPERATOR Inhaled Oxygen Concentration - - Weight 78 kg (172 lb) 07/24/2011 3:00 PM TELEPHONE INTERCEPTOR OPERATOR Height 167.6 cm (5' 6 ) 07/24/2011 3:00 PM TELEPHONE INTERCEPTOR OPERATOR Body Mass Index 27.76 07/24/2011 3:00 PM TELEPHONE INTERCEPTOR OPERATOR Plan of Treatment Health Maintenance Due Date Last Done Comments DTAP/TDAP/TD VACCINES (1 - Tdap) 1981 HPV/Cotest (21-29) 1983 CERVICAL CANCER SCREENING 1992 HPV/Cotest (30-65) 1992 PAP SMEAR 1992 COLORECTAL SCREENING 2007 Colorectal Cancer Screening 2007 FIT-DNA Q 3 years 2007 FIT/FOBT Q 1 year 2007 Flex Sig/CT Colonography Q 5 years 2007 ZOSTER VACCINE (1 of 2) 2012 BREAST CANCER SCREENING 01/17/2022 01/18/20 21, 01/17/2021, 10/18/2019, Additional history exists INFLUENZA VACCINE (#1) 2024 RSV VACCINE (60+ or ) (1 - 1-dose 75+ series) 2037 Insurance Care Teams Data Solutions Architect Relationship Specialty Start Date End Date Kevin Rivera MD PCP - General Internal Medicine 07/24/11
--- OUTSIDE RECORDS SUMMARY | 2024-12-09 13:32 | XMS_ITS | Encounter Summary ---
Author Organization [facility] Address [address] [place] [address] Phone Care Team Providers Care Production Reproduction Manager Name Role Phone Kevin Rivera MD Primary Care Provider + Lauren De Dios [place] Unavailable [phone] Encounter Details Date Type Department Care Team (Late st Contact Info) Description 10/08/2017 Orders Only [facility] ProviderAma MD [facility] [place] [address] Social History Tobacco Use Types Packs/Day Years Used Date Smoking Tobacco: Never Smokeless Tobacco: Never Alcohol Use Standard Drinks/Week Comments Yes 0 (1 standard drink = 0.6 oz pur e alcohol) Comments Unknown Sex and Gender Information Value Date Recorded Sex Assigned at Not on file Legal Sex Female 2:03 AM CHILLER HAND Gender Identity Female 07/15/2020 8:29 AM CHILLER HAND Sexual Orientation Straight 07/15/2020 8: 29 AM CHILLER HAND 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 us Historical Provider LAB BLOOD ORDERABLES Julia l Result documented in this encounter Visit Diagnoses Not on filedocumented in this encounter Additional Health Concerns Infection Onset Date Last Indicated Resolved Time COVID: Suspected 12/28/2019 12/28/2019 12/30/2019 5:55 PM CDT Respiratory Infection (TANJA), contact + droplet Comment:Automatically added due to negative COVID-19 result. 12/30/2019 12/30/2019 01/13/2020 3:0 5 AM CDT documented as of this encounter Care Teams Production Reproduction Manager Relationship Specialty Start Date End Date Kevin Rivera MD [address] [address] PCP - General 01/10/16 Lauren De Dios DC [address] [place] [address] Referring Physician Chiropractic Medicine 10/01/23 documented as of this encounter
--- OUTSIDE RECORDS SUMMARY | 2024-12-09 13:32 | XMS_ITS | Clinical Summary ---
Author Organization [facility] Address [address] [place] [address] Phone Care Team Providers Care Retail Cosmetics Sales Beauty Advisor Name Role Phone Kevin Rivera MD Primary Care Provider Un available Allergies No known active allergies Medications aspirin 81 MG Chewable Tablet Take 1 Tablet by mouth daily. Active atorvastatin (LIPITOR) 40 MG Tablet Take 1 Tablet by mouth daily. 11/13/2021 Active buPROPion SR (WELLBUTRIN SR) 150 MG TABLET SR 12 HR Take 1 Tablet by mouth 2 times daily. 10/01/2017 Active Cholecalciferol 50 mcg Tablet Take 2,000 Units by mouth daily. Active hyoscyamine (LEVBID) 0.375 MG TABLET SR 12 HR Take 1 Tablet by mouth in the morning and at bedtime. 11/13/2021 Active Multiple Vitamins-Minera ls (Multi Vitamin/Mineral s) Tablet Take 1 Tablet by mouth daily. Active omeprazole (PriLOSEC) 20 MG CAPSULE DELAYED RELEASE Take 1 Capsule by mouth daily. 11/13/2021 Active psyllium ([employer] Daily Fiber) 58.6 % Pack Take 1 Packet by mouth daily. Active Multiple Vitamins-Minera ls (Hair Skin and Nails Formula) Tablet Take 1 Tablet by mouth daily. Active Active Problems Problem Noted Date Diagnosed Date CVA (cerebral vascular accident) 02/04/2022 Hyperlipidemia 02/04/2022 Irritable bowel syndrome wit h both constipation and diarrhea 02/04/2022 Anxiety and depression 02/04/2022 Acute focal neurological deficit 02/04/2022 Family History Medical History Relation Name Comments Congestive Heart Failure Father Alzheimer's Disease Mother Relation Name Status Comments Father Alive Mother Social History Tobacco Use Types Packs/Day Years Used Date Smoking Tobacco: Never Smokeless Tobacco: Never Alcohol Use Standard Drinks/Week Comments Not Currently 0 (1 standard drink = 0.6 oz pur e alcohol) Comments Unknown Sex and Gender Information Value Date Recorded Sex Assigned at Not on file Legal Sex Female 10:11 AM CDT Gender Identity Not on file Sexual Orientation Not on file Last Filed Vital Signs Vital Sign Reading Time Taken Comments Blood Pressure 108/96 02/04/2022 4:00 PM CDT Pulse 60 02/04/2022 3:00 PM CDT Temperature 36.1 C (97 F) 02/04/2022 1:22 PM CDT Respiratory Rate 13 02/04/2022 4:00 PM CDT Oxygen Saturation 98% 02/04/2022 3:00 PM CDT Inhaled Oxygen Concentration - - Weight 78.7 kg (173 lb 9.6 oz) 02/04/2022 2:38 P M CDT Height 162.6 cm (5' 4 ) 02/04/2022 2:38 PM CDT Body Mass Index 29.8 02/04/2022 2:38 PM CDT Plan of Treatment Health Maintenance Due Date Last Done Comments Hepatitis C Virus (HCV) Screening 1962 Colonoscopy 2007 Colorectal Cancer Screening 2007 Cologuard 2012 Immunochemical Fecal Occult Blood 2012 Pneumococcal Immunization (50+ years) (1 of 1 - PCV) 2012 Influenza Immunization (#1) 04/09/202405/09, 05/11/2019, 04/27/2018, Additional history exists SARS-COV-2 Immunization ( season) 2024 07/05/2021, 11/08/2020, 10/15/2020 Respiratory Syncytial Virus (RSV) Immunization (Adult) (1 - 1-dose 75+ series) 2037 Zoster Immunization Completed 05/12/2019, 9 DTaP/Tdap/Td Immunization Discontinued 11/06/2021, 03/2011 TdaP Immunization Completed 11/06/2021, 09/16/2010 Hepatitis B Immunization Aged Out No longer eligible based on patient's age to complete this topic Meningococcal Immunization (ACWY) Aged Out No longer eligible based on patient's age to complete this topic Rotavirus Immunization Aged Out No lo nger eligible based on patient's age to complete this topic Advance Directives * Full Code (Latest Code Status on File) Date Activated Date Inactivated Comments 02/04/2022 1:19 PM 02/04/2022 9:26 PM CPR-Full Marty atment: FULL ARREST: Attempt Resuscitation/CPR wit intubation and mechanical ventilation. PRE-ARREST: Use entire range of life support measures to stabilize the patient. Care Teams Retail Cosmetics Sales Beauty Advisor Relationship Specialty Start Date End Date Kevin Rivera MD PCP - General Internal Medicine 02/04/22
--- OUTSIDE RECORDS SUMMARY | 2024-12-09 13:32 | XMS_ITS | Referral Summary ---
Author Organization [facility] Address [address] [place] [address] Phone Care Team Providers Care Robotics Technologist Name Role Phone Kevin Rivera MD Primary Care Provider + Lauren De Dios [facility] Encounters Date Type Department Care Team Description 11/28/2024 Results Follow-Up [facility] Primary Care at [address] [place] [phone] Kevin Rivera MD 11/27/2024 Nurse Triage [facility] Primary Care at [address] [place] [address] [phone] Kevin Rivera MD 11/27/2024 10:23 AM CDT - 11/27/2024 11:59 PM CDT Hospital Encounter [address] [phone] Discharge Disposition: Discharge to home or self care 11/27/2024 10:00 AM CDT Office Visit [facility] Primary Care at [address] [address] Kevin Rivera MD Annual physical exam (Primary Dx); Moderate episode of recurrent major depressive disorder (HCC); Encounter for screening mammogram for malignant neoplasm of breast 10/25/2024 1:17 PM CDT - 10/25/2024 11:59 PM CDT Hospital Encounter [facility] [address] [place] [address] Arthrodesis status Discharge Disposition: Discharge to home or self care 09/18/2024 Nurse Triage [facility] Primary Care at [facility] [address] [place] [phone] Kevin Rivera MD from Last 3 Months Allergies Active Allergy Reactions Criticality Noted Date Comments Adhesive Itching,Rash,Redness Medium 12/18/2021 Medications multivitamin, zl-rupg-Ip-FA -min 27-0.4 mg tablet Take 1 tablet by mouth nightly Active cholecalcifer ol, vitamin D3, 1,000 unit tablet,chewab le Take 1 tablet/chew tab by mouth every morning Unsure of dose -- takes OTC Active clotrimazole- betamethasone (LOTRISONE) cream Apply 1 Application topically as needed Active polyethylene glycol (MIRALAX) 17 gram packetIndicat ions:constipa tion Take 0.5 packets (8.5 g total) by mouth nightly Active buPROPion SR (WELLBUTRIN SR) 150 mg 12 hr tablet TAKE 1 TABLET TWICE A DAY 180 tablet 3 06/19/20 24 Active aspirin 81 mg enteric coated tablet Take 1 tablet (81 mg total) by mouth every morning 06/29/20 24 Active docusate sodium (COLACE) 100 mg capsule TAKE 1 CAPSULE TWICE A DAY NEEDED FOR CONSTIPATION 180 capsule 3 09/18/19 25 Active hyoscyamine ER (LEVBID) 0.375 mg 12 hr tablet Take 1 tablet (0.375 mg total) by mouth every 12 (twelve) hours as needed 10/09/19 25 Active rosuvastatin (CRESTOR) 20 mg tablet TAKE 1 TABLET DAILY 90 tablet 3 11/28/19 25 Active omeprazole (PriLOSEC) 20 mg capsule TAKE 1 CAPSULE DAILY BEFORE BREAKFAST 100 capsule 1 11/28/19 25 Active omeprazole (PriLOSEC) 20 mg capsule Take 1 capsule (20 mg total) by mouth every morning 025 Discontinued rosuvastatin (CRESTOR) 20 mg tablet Take 1 tablet (20 mg total) by mouth nightly 06/09/24 now taking in am instead of pm 025 Discontinued hyoscyamine sulfate 0.125 mg-0.25 mg (0.375 mg) tablet,ext release multiphase Take 0.375 mg by mouth 2 (two) times a day 025 Discontinued(T herapy completed) Active Problems Problem Noted Date Diagnosed Date Lumbar stenosis with neurogenic claudication 07/2024 Primary osteoarthritis of right knee 01/25/2024 Complex tear of lateral meni scus of right knee as current injury 01/25/2024 Mucous cyst of digit of hand 11/25/2022 Left wrist pain 04/24/2022 Assessment & Plan (04/24/2022 11:41 AM CDT): New problem. Ddx include: Carpal tunnel versus arthritis. Exercising for Carpal tunnel syndrome. Advised to ice and try topical Voltaren gel. If pain flares up again brace nightly. Call office if pain persists and we can order XR of hands. CVA (cerebral vascular accident) 02/04/2022 Paronychia of middle finger 09/09/2021 Assessment & Plan (09/09/2021 8:36 AM DIRECTOR COMMUNITY [facility] NURSING): New problem. Doxycycline given. Encouraged her to soak finger in epson salt. For the the nail fungus, it is growing out so no additional treatment at this time. She will follow up if there is no improvement. Encouraged her to avoid manicures at this time. Moderate episode of recurrent major depressive d isorder 01/30/2019 Sensorineural hearing loss (SNHL) of both ears 0 11/09/2018 BMI 28.0-28.9,adult 10/20/2018 Small intestinal bacterial overgrowth 10/20/2018 Hypercholesterolemia 10/11/2018 Hypertension 08/27/2015 Overview (11/12/2016): Hypertension Vertigo 08/27/2015 Overview (11/12/2016): Vertigo Irritable bowel syndrome 08/27/2015 Overview (11/12/2016): IBS (irritable bowel syndrome) Gastroesophageal reflux disease 08/27/2015 Overview (11/12/2016): GERD (gastroesophageal reflux disease) Resolved Problems Problem Noted Date Diagnosed Date Resolved Date Sore throat 12/28/2019 11/06/2021 Assessment & Plan (12/28/2019 2:58 PM CDT): Could be mild case of COVID -19 or even acute bacterial rhinosinusitis. COVID - 19 swab pending & will start on antibiotics + saline, cjbw-wyl-woautdc mucolytic & a Tessalon Immunizations Immunization Administration Dates Next Due Influenza, Quadrivalent, Kaya l Culture-based MDCK, Antibiotic Free, Intramuscular 05/11/2019 Influenza, Quadrivalent, Spl it, Preservative Free, Intramuscular 05/21/2023,04/24/2022,04/27/2018 Influenza, Trivalent, IM (MDV) 07/25/2012 Influenza, Trivalent, Preser vative Free, Intramuscular 04/28/2017,04/30/2016 Influenza, Unspecified 05/29/2021(Deferr ed: Patient Refused),05/24/2020,04/27/2018, 017 Pfizer SARS-CoV-2 Monovalent Vaccination (12+ Yrs) PURPLE 06/29/2021,11/08/2020,10/15/2020 Tdap 11/06/2021,09/16/2010 ZOSTER Recombinant 05/12/2019,01/29/2019 Social History Tobacco Use Types Packs/Day Years Used Date Smoking Tobacco: Never Smokeless Tobacco: Never Tobacco Cessation:Counseling Given: Not Answered Alcohol Use Standard Drinks/Week Comments Yes 0 (1 standard drink = 0.6 oz pur e alcohol) [facility] Utilities Answer Date Recorded In the past 12 months has [employer] gas, oil, or water [employer] threatened to shut off services in your home? No 06/21/2024 Social Connection and Isolat ion Panel [NHANES] Answer Date Recorded In a typical week, how many times do you talk on the phone with family, friends, or neighbors? More than three times a week 06/21/2024 How often do you get togethe r with friends or relatives? More than three times a week 06/21/2024 How often do you attend chur ch or confucianism services? 1 to 4 times per year 06/21/2024 Do you belong to any clubs o r organizations such as yazidism groups, unions, fraternal or athletic groups, or school groups? Yes 06/21/2024 How often do you attend meet ings of the clubs or organizations you belong to? 1 to 4 times per year 06/21/2024 Are you , , di vorced, , never , or living with a partner? 06/21/2024 AUDIT-C Answer Date Recorded Q1: How often do you have a drink containing alc ohol? 2-4 times a month 06/20/2024 Q2: How many drinks containi ng alcohol do you have on a typical day when you are drinking? 1 or 2 06/20/2024 Q3: How often do you have si x or more drinks on one occasion? Never 06/20/2024 Overall Financial Resource Strain (CARDIA) Answe r Date Recorded How hard is it for you to pa y for the very basics like food, housing, medical care, and heating? Not very hard 06/21/2024 PHQ-2 Answer Date Recorded PHQ-2 Total Score (If total score is 3 or more points, staff should administer the PHQ-9) 0 11/27/2024 Hunger Vital Sign Answer Date Recorded Within the past 12 months, y ou worried that your food would run out before you got the money to buy more. Never true 06/21/20 24 Within the past 12 months, t he food you bought just didn't last and you didn't have money to get more. Never true 06/21/2024 PRAPARE - Transportation Answer Date Re corded In the past 12 months, has l ack of transportation kept you from medical appointments or from getting medications? No 06/09 In the past 12 months, has l ack of transportation kept you from meetings, work, or from getting things needed for daily living? No 06/21/2024 Housing Stability Vital Sign Answer Mo e Recorded In the last 12 months, was t here a time when you were not able to pay the mortgage or rent on time? No 06/21/2024 In the past 12 months, how m any times have you moved where you were living? 0 06/21/2024 At any time [facility] the [facility] were you homeless or living in a half-way (including now)? No 06/21/2024 Personal Safety Answer Date Recorded Have you ever been in or are you currently in a harmful physical or emotional relationship or is someone making you feel afraid or unsafe? 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 Not on file Not on file Not on kaushik e Last Filed Vital Signs Vital Sign Reading Time Taken Comments Blood Pressure 102/60 11/27/2024 9:59 AM CDT Pulse 54 11/27/2024 9:59 AM CDT Temperature 36.8 C (98.3 F) 06/22/2024 8:00 AM DIRECTOR COMMUNITY HE[facility] NURSING Respiratory Rate 16 06/22/2024 8:00 AM DIRECTOR COMM[facility]ITY HE[facility] NURSING Oxygen Saturation 99% 11/27/2024 9:59 AM CDT Inhaled Oxygen Concentration - - Weight 68.5 kg (151 lb) 11/27/2024 9:59 AM CDT Height 165.1 cm (5' 5 ) 11/27/2024 9:59 AM CDT Body Mass Index 25.13 11/27/2024 9:59 AM CDT Plan of Treatment Not on file Medical Devices Implanted Type Area Field Training Manager Device Identifier Shelf Expiration Date Model / Serial / Lot [employer] [place] R High Viscosity Cement 40gm Bone Green [id number] - [id number] Implanted:Qty: 1 on 03/16/2024 by Manolo Avila MD at [facility] Bone Cement Right: Knee [employer] 05/08/2028 [id number] / / [id number] Screws Right: Foot Melendez [employer] Nephew/Richco/Or tho Journey Bicruciate Stabilize Knee Right 3 Baseplate Tibial [id number] - [id number] Implanted:Qty: 1 on 03/16/2024 by Manolo Avila MD at [facility] Right: Knee [employer]hew/Richco/O rtho [id number] 09/21/2033 [id number] / / [id number] [employer]endez [employer] Nephew/Richco/Or tho Journey Ii Cruciate Retain Knee Right 5 Component Femoral Oxinium [id number] - [id number] Implanted:Qty: 1 on 03/16/2024 by Manolo Avila MD at [facility] Right: Knee [employer]/Rich[employer]/O rtho [id number] 11/06/2033 [id number] / / [id number] [employer]hew/Richco/Or tho Journey 32mm 7.5mm Resurface Round Component Patellar [id number] - [id number] Implanted:Qty: 1 on 03/16/2024 by Manolo Avila MD at [facility] Right: Knee [employer]Rich[employer]/O rtho [id number] 10/26/2033 [id number] / / [id number] Melendez [employer] Nephew/Richco/Or tho Insert Tibial Knee Fixed Rm Articular Journey Ii 10mm Size 3-4 Xlpe [id number] - [id number] Implanted:Qty: 1 on 03/16/2024 by Manolo Avila MD at [facility] Right: Knee [employer]hew[employer]Rich[employer]/O rtho [id number] 04/17/2033 [id number] / / [id number] [place] Spine 4.5mm 100mm Contour Doni Spinal Cocr [id number] - [id number] Implanted:Qty: 2 on 06/20/2024 by Senthil Mills MD at [facility] N/A: Lumbar-S acral Spine Chela Spine [id number] / / Chela Spine 26mm Semiadjustable Transverse Spine Connector Doni Posterior [id number] - [id number] Implanted:Qty: 1 on 06/20/2024 by Senthil Mills MD at [facility] N/A: Lumbar-S acral Spine Chela Spine [id number] / / Biocomposites Stimulan Rapid Cure Kit Paste Technical Support Associate 10cc 20cc Bone Void 620-010 - [id number] Implanted:Qty: 1 on 06/20/2024 by Senthil Mills MD at [facility] N/A: Lumbar-S acral Spine Biocom[employer]ites 01/06/2025 620-010 / / [id number] [place] Spine 4mm 30mm Polyaxial Spine Screw Bone Deformity [id number] - [id number] Implanted:Qty: 8 on 06/20/2024 by Senthil Mills MD at [facility] N/A: Spine Lumbar [place]rem[place]on Spine [id number] / / Zav[employer] Llc Cage Spinal Lumbar 10 Degree Tlif Expandable 7-11.5mm Titanium [id number] - [id number] Implanted:Qty: 3 on 06/20/2024 by Senthil Mills MD at [facility] N/A: Spine Lumbar [employer]c [id number] / / Zav[employer] Llc Cage Spinal Lumbar 0 Degree Plif Expandable Ezspand 7-11.5mm Titanium [id number] - [id number] Implanted:Qty: 2 on 06/20/2024 by Senthil Mills MD at [facility] N/A: Spine Lumbar [employer]c [id number] / / Chela Spine 23mm Semiadjustable Transverse Spine Connector Doni Posterior [id number] - [id number] Implanted:Qty: 1 on 06/20/2024 by Senthil Mills MD at [facility] N/A: Lumbar-S acral Spine [place] Spine [id number] A / / Procedures Procedure Name Priority Date/Time Associated Diagnosis Comments EGFR Routine 11/27/2024 10:22 AM CDT Annual physical exam DIFFERENTIAL AUTO Routine 11/27/2024 10: 22 AM CDT Annual physical exam CBC WITH AUTO DIFFERENTIAL Routine 11/27/2024 10:22 AM CDT Annual physical exam COMPREHENSIVE METABOLIC PANEL Routine 11/27/2024 10:22 AM CDT Annual physical exam LIPID PANEL Routine 11/27/2024 10:22 AM CDT Annual physical exam THYROID FUNCTION CASCADE Routine 11/27/2024 10:22 AM CDT Annual physical exam URINALYSIS AND REFLEX TO MICROSCOPIC AND CULTURE Routine 11/27/2024 10:22 AM CDT Annual physical exam XR SPINE LUMBAR 2 OR 3 VIEWS Schedule Routine, Read Routine (OP Routine) 10/25/2024 1:26 PM CDT Arthrodesis status SCREENING MAMMOGRAM BILATERAL W STEVEN Schedule Routine, Read Routine (OP Routine) 11/24/2023 10:14 AM CDT Screening mammogram, encounter for COLONOSCOPY Routine 11/03/2022 HEPATITIS C ANTIBODY Routine 10/08/2017 9:00 AM DIRECTOR COMM[facility]ITY [facility] NURSING Annual physical exam HM PAP SMEAR WITH HPV Routine 03/24/2017 from Last 3 Months or Most Recently Relevant to Health Maintenance Results * eGFR (11/27/2024 10:22 AM CDT) eGFR 79 >=60 mL/min/1. 73 m2 Comment: Interpretive Data Reference Interval Normal >/= 90 mL/min/1.73m2 Mildly decreased* 60 - 89 mL/min/1.73m2 Mildly to moderately decreased 45 - 59 mL/min/1.73m2 Moderately to severely decreased 30 - 44 mL/min/1.73m2 Severely decreased 15 - 29 mL/min/1.73m2 Kidney Failure < 15 mL/min/1.73m2 *Relative to young adult level Estimated glomerular filtration rate is determined by the 2020 CKD-EPI equation recommended by the National Kidney Foundation (A Unifying Approach to GFR Estimation: Recommendations of the NKF-ASK Task Force on Reassessing the Inclusion of Race in Diagnosing Kidney Disease, JASN 2020). The CKD-EPI equation should not be used for patients with unstable renal function and has not been validated in children and those over 70. Current interpretive data was last reviewed 2021. Blood 11/27/2024 10:2 2 AM CDT 11/27/2024 8:20 PM CDT us Kevin Rivera MD LAB BLOOD ORDERABLES Fin al Result [facility] [address] Department [place] [address] * Differential, auto (11/27/2024 10:22 AM CDT) Neutrophil abs 3.16 1.50 - 6.50 K/cumm Imm gran abs 0.02 0.00 - 0.10 K/cumm [facility] Lymphocyte abs 1.99 0.80 - 3.30 K/cumm [facility] Monocyte abs 0.36 0.20 - 0.80 K/cumm [facility] Eosinophil abs 0.08 0.00 - 0.50 K/cumm [facility] Basophil abs 0.02 0.00 - 0.10 K/cumm [facility] Neutrophil pct 56.1 % [facility] Comment: Interpretive Data Percent cell count reference ranges are not reported, since discordance with absolute values may lead to misinterpretation of CBC data. Current Interpretive Data was last revised on 2017. Imm gran pct 0.4 % [facility] Comment: Interpretive Data Percent cell count reference ranges are not reported, since discordance with absolute values may lead to misinterpretation of CBC data. Current Interpretive Data was last revised on 2017. Lymphocyte pct 35.3 % [facility] Comment: Interpretive Data Percent cell count reference ranges are not reported, since discordance with absolute values may lead to misinterpretation of CBC data. Current Interpretive Data was last revised on 2017. Monocyte pct 6.4 % [facility] Comment: Interpretive Data Percent cell count reference ranges are not reported, since discordance with absolute values may lead to misinterpretation of CBC data. Current Interpretive Data was last revised on 2017. Eosinophil pct 1.4 % [facility] Comment: Interpretive Data Percent cell count reference ranges are not reported, since discordance with absolute values may lead to misinterpretation of CBC data. Current Interpretive Data was last revised on 2017. Basophil pct 0.4 % [facility] Comment: Interpretive Data Percent cell count reference ranges are not reported, since discordance with absolute values may lead to misinterpretation of CBC data. Current Interpretive Data was last revised on 2017. Blood 11/27/2024 10:2 2 AM CDT 11/27/2024 6:00 PM CDT Keivn Rivera MD LAB BLOOD ORDERABLES Fin al Result Performing Organization Address City/[facility]/ZIP Co de Phone Number [facility] [address] Department [employer] [place], [place] [id number] * Thyroid Function [place] (11/27/2024 10:22 AM CDT) Pathologist [facility] TSH 1.12 0.30 - 4.20 mcIUnit/mL Blood 11/27/2024 10:2 2 AM CDT 11/27/2024 8:20 PM CDT Kevin Rivera MD LAB BLOOD ORDERABLES Fin al Result [facility] [address] Department [place] [address] * Urinalysis reflex to microscopic and culture Urine, clean voided (11/27/2024 10:22 AM CDT) Color, ur Yellow Yellow Clarity, ur Clear Clear [facility] Specific gravity, ur 1.020 1.003 - 1.030 [facility] pH, urine 6.0 [facility] Comment: Interpretive Data U rine pH is affected by diet, medications, systemic acid-base disturbances, and renal tubular function. pH may affect urinary stone formation. For example, urine pH below 6.0 may help reduce the tendency for calcium phosphate stones and pH greater than 6.0 may reduce the tendency for uric acid stone formation. Source: [facility] Current Interpretive Data was last revised on 2017 Protein, ur ql Negative Negative [facility] Glucose, ur ql Negative Negative [facility] Ketones, ur Negative Negative [facility] Bilirubin, ur Negative Negative [facility] Blood, ur Negative Negative [facility] Urobilinogen, ur <2.0 <2.0 mg/dL [facility] Nitrite, ur Negative Negative [facility] Leukocyte esterase, ur Negative Negative [facility] UA reflex comment Reflex conditions for microscopic UA and culture not met. [facility] Urine, clean voided 11/27/2024 10:22 AM CDT 11/27/2024 10:23 AM CDT us Kevin Rivera MD LAB MICROBIOLOGY - GENER AL ORDERABLES Final Result [facility] [address] Department [place] [address] * (ABNORMAL) CBC with auto differential (11/27/2024 10:22 AM CDT) WBC 5.63 3.80 - 9.90 K/cumm Hgb 12.3 11.9 - 15.5 g/dL [facility] Hct 39.1 35.6 - 45.5 % [facility] Plt 299 150 - 400 K/cumm [facility] MPV 9.1 9.1 - 12.3 fL [facility] RBC 4.10 3.90 - 5.20 M/cumm [facility] MCV 95.4 81.3 - 96.4 fL [facility] MCH 30.0 27.1 - 33.3 pg [facility] MCHC 31.5(L) 32.3 - 35.7 g/dL [facility] RDW CV 15.2(H) 11.1 - 14.9 % [facility] RDW SD 53.6(H) 35.7 - 48.1 fL [facility] NRBC abs 0.00 0.00 - 0.01 K/cumm [facility] Blood 11/27/2024 10:2 2 AM CDT 11/27/2024 6:00 PM CDT us Kevin Rivera MD LAB BLOOD ORDERABLES Fin al Result [facility] [address] Department [place] [address] * (ABNORMAL) Lipid panel (11/27/2024 10:22 AM CDT) Cholesterol 203(H) 30 - 199 mg/dL Comment: Interpretive Data Ages < or = 19 years Acceptable: <170 mg/dL Borderline high: 170-199 mg/dL High: >or= 200 mg/dL Ages > or = 20 years Desirable: <200 mg/dL Borderline high: 200-239 mg/dL High: >or= 240 mg/dL Literature References: 1. Expert Panel on Integrated Guidelines for Cardiovascular Health and Risk Reduction in Children and Adolescents. Pediatrics 2011;128:S213 2. NCEP Expert Panel. Circulation 2004;110:227 Current Interpretive Data was last revised on 2018. Triglycerides 107 <=149 mg/dL [facility] Comment: Interpretive Data Ages < or = 9 years Acceptable: <75 mg/dL Borderline high: 75-99 mg/dL High: >or= 100 mg/dL Ages 10 to 20 years Acceptable: <90 mg/dL Borderline high: 90-129 mg/dL High: >or= 130 mg/dL Ages > or = 20 years Desirable: <150 mg/dL Borderline high: 150-199 mg/dL High: 200-499 mg/dL Very high: >or= 499 mg/dL Literature References: 1. Expert Panel on Integrated Guidelines for Cardiovascular Health and Risk Reduction in Children and Adolescents. Pediatrics 2011;128:S213 2. NCEP Expert Panel. Circulation 2004;110:227 Current Interpretive Data was last revised on 2018. HDL 62 >=40 mg/dL [facility] Comment: Interpretive Data Ages < or = 19 years Acceptable: >45 mg/dL Borderline low: 40-45 mg/dL Low: <40 mg/dL Ages > or = 20 years Desirable: >or= 60 mg/dL Low: <40 mg/dL Literature References: 1. Expert Panel on Integrated Guidelines for Cardiovascular Health and Risk Reduction in Children and Adolescents. Pediatrics 2011;128:S213 2. NCEP Expert Panel. Circulation 2004;110:227 Current Interpretive Data was last revised on 2018. LDL, calculated 122 <=129 mg/dL [facility] Comment: Interpretive Data Ages < or = 19 years Acceptable: <110 mg/dL Borderline high: 110-129 mg/dL High: >or= 130 mg/dL Ages > or = 20 years Optimal: <100 mg/dL Near optimal: 100-129 mg/dL Borderline high: 130-159 mg/dL High: >160 mg/dL Calculated using the Asher LDL-C estimating equation. This equation was implemented on 2024. Prior to this date LDL-C was estimated using the Friedewald equation. Literature References: 1. Expert Panel on Integrated Guidelines for Cardiovascular Health and Risk Reduction in Children and Adolescents. Pediatrics 2011;128:S213 2. NCEP Expert Panel. Circulation 2004;110:227 3. Asher Livingston et al. PAULIE Cardiol. 2019December 07;5(5):540-548. doi: 10.1001/jamacardio.2020.0013 Current Interpretive Data was last revised on 2024. Non-HDL Cholesterol 141 mg/dL [facility] Comment: Interpretive Data Ages < or = 19 years Acceptable: <120 mg/dL Borderline high: 120-144 mg/dL High: >145 mg/dL Ages > or = 20 years When triglycerides are >200 mg/dL, Non-HDL cholesterol is a secondary target of therapy with treatment goals that are 30 mg/dL greater than the LDL cholesterol target. Literature References: 1. Expert Panel on Integrated Guidelines for Cardiovascular Health and Risk Reduction in Children and Adolescents. Pediatrics 2011;128:S213 2. NCEP Expert Panel. Circulation 2004;110:227 Current Interpretive Data was last revised on 2018. Chol/HDL ratio 3 [facility] Blood 11/27/2024 10:2 2 AM CDT 11/27/2024 8:20 PM CDT us Kevin Rivera MD LAB BLOOD ORDERABLES Fin al Result [facility] [address] Department [place] [address] * (ABNORMAL) Comprehensive metabolic panel (11/27/2024 10:22 AM CDT) Sodium 140 135 - 145 mmol/L Potassium, pl 4.1 3.3 - 4.9 mmol/L [facility] Chloride 104 97 - 110 mmol/L [facility] CO2 25 22 - 32 mmol/L [facility] Anion gap 11 2 - 15 mmol/L [facility] BUN 13 6 - 25 mg/dL [facility] [facility] Creatinine 0.84 0.60 - 1.10 mg/dL [facility] Glucose 53(C) 70 - 199 mg/dL [facility] Comment: Critical result called to and read back by Sue Tony RN on 11/27/2024 [id number] to [id number] Interpretive Data Fasting glucose >/= 126 mg/dl is diagnostic for diabetes. Fasting is defined as no caloric intake for at least 8 hours. Fasting glucose between 100 mg/dl to 125 mg/dl is diagnostic of prediabetes. In a patient with classic symptoms of hyperglycemia or hyperglycemic crisis, a random glucose >/= 200 mg/dl is diagnostic for diabetes. In the absence of unequivocal hyperglycemia, results should be confirmed by repeat testing. The classification and Diagnosis of Diabetes Diabetes Care 2022; 46: S19-S40. Current interpretive data was last revised 2022. Calcium 9.7 8.5 - 10.3 mg/dL [facility] Bilirubin, total 0.4 0.1 - 1.2 mg/dL [facility] Protein, pl 7.0 6.5 - 8.5 g/dL [facility] Albumin 4.2 3.5 - 5.0 g/dL [facility] Alk phos 79 40 - 130 Units/L [facility] ALT 14 7 - 45 Units/L [facility] AST 23 10 - 45 Units/L [facility] Blood 11/27/2024 10:2 2 AM CDT 11/27/2024 8:20 PM CDT us Kevin Rivera MD LAB BLOOD ORDERABLES Fin al Result [facility] [address] Department [place] [address] * XR Spine Lumbar 2 or 3 Views (10/25/2024 1:26 PM CDT) Anatomical Region Laterality Modality Spine N/A Digital Radiogra phy 10/25/2024 1:38 PM CDT Impressions 10/25/2024 1:38 PM CDT Status post L2-L5 posterior fusion. Interbody cages present at L2-3 through L4-5. Hardware intact and unchanged in configuration. Status post multilevel laminectomy. Mild retrolisthesis at L2-3 and anterolisthesis at L4-5, unchanged. No new compression deformity along the lumbar spine. Visualized sacrum and bony pelvis intact. Electronically signed by: Karthik Weaver M.D. Narrative 10/25/2024 1:38 PM CDT XR SPINE LUMBAR 2 OR 3 VIEWS: 10/25/2024 2:00 PM CLINICAL INDICATION: Arthrodesis status. COMPARISON: Radiographs of the lumbar spine dated 09/06/2024. Procedure Note Karthik Weaver MD - 10/25/2024 XR SPINE LUMBAR 2 OR 3 VIEWS: 10/25/2024 2:00 PM CLINICAL INDICATION: Arthrodesis status. COMPARISON: Radiographs of the lumbar spine dated 09/06/2024. IMPRESSION: Status post L2-L5 posterior fusion. Interbody cages present at L2-3 through L4-5. Hardware intact and unchanged in configuration. Status post multilevel laminectomy. Mild retrolisthesis at L2-3 and anterolisthesis at L4-5, unchanged. No new compression deformity along the lumbar spine. Visualized sacrum and bony pelvis intact. Electronically signed by: Karthik Weaver M.D. Senthil Mills MD IMG XR PROCEDURES Final R esult * Screening Mammogram Bilateral W Steven (11/24/2023 10:14 AM CDT) Anatomical Region Laterality Modality Breast Bilateral Mammography 11/24/2023 12:1 8 PM CDT Impressions 11/24/2023 12:18 PM CDT There is no mammographic evidence of malignancy. A 1 year screening mammogram is recommended. BI-RADS: 1 - Negative. The patient has been or will be contacted. The patient will be entered into a reminder system with a target due date of 1 year for her next mammogram. Electronically signed by: Kaela Hendrix M.D. Narrative 11/24/2023 12:18 PM CDT EXAMINATION: SCREENING MAMMOGRAM BILATERAL W STEVEN ORDERING HEALTHCARE PROVIDER: SELF SCREENING MAMMOGRAM HISTORY: Routine screening mammography. COMPARISON: 07/07/2022, 01/17/2021, 10/18/2019, 04/20/2018 TECHNIQUE: CC and MLO views of the bilateral breasts were obtained with digital technique using breast tomosynthesis with C view. Computer aided detection was utilized. FINDINGS: DENSITY: There are scattered fibroglandular elements in the bilateral breasts. BREASTS: There are no suspicious masses, suspicious calcifications, or other suspicious findings in either breast. There has been no suspicious interval change. Self Screening Mammogram IMG MAMMO PROCEDURES Fi nal Result * Colonoscopy (11/03/2022) Anatomical Region Laterality Modality Other Historical Provider ENDOSCOPY PROCEDURES Julia l Result * Hepatitis C antibody (10/08/2017 9:00 AM DIRECTOR [facility]) Hep C Ab Non-Reactiv e Non-Reactiv e [facility] Blood specimen (specimen) 10/08/2017 9:00 AM DIRECTOR [facility] 10/08/2017 1:15 PM DIRECTOR [facility] Narrative [facility] - 10/08/2017 2:14 PM DIRECTOR [facility] Kevin Rivera MD LAB MICROBIOLOGY - GENER AL ORDERABLES Final Result [facility] [address] Department [place] [address] * PAP SMEAR WITH HPV (03/24/2017) Pap smear Normal Historical Provider HEALTH MAINTENANCE Final Result from Last 3 Months or Most Recently Relevant to Health Maintenance Insurance [id number] [employer] [employer] PPO [facility] [place] [facility] [employer] [place] [facility] [employer] [place] Advance Directives For more information, please contact: [phone] Documents on File Type Date Recorded Patient Chief Fundraising Officer Expl anation ADVANCE DIRECTIVE 03/02/2024 11:47 AM Shauna Vides * Full Code (Latest Code Status on File) Date Activated Date Inactivated Comments 06/20/2024 8:04 PM 06/22/2024 8:51 PM * Full Code Date Activated Date Inactivated Comments 03/16/2024 2:35 PM 03/18/2024 12:39 AM Care Teams Robotics Technologist Relationship Specialty Start Date End Date Kevin Rivera MD [address] [address] PCP - General 01/10/16 Lauern De Dios DC [address] [place] [address] Referring Physician Chiropractic Medicine 10/01/23
--- OUTSIDE RECORDS SUMMARY | 2024-12-09 13:32 | XMS_ITS | Clinical Summary ---
Author Organization [facility] Address [address] [place] [address] Care Team Providers Care Electrical Cad Technician Name Role Phone Senthil Schroeder MD Unavailable [phone] Kevin Rivera MD Primary Care Provider [phone] Source Comments [facility],non-owned Affiliates and Associated Physician Practices is amultiple site organization consisting of ambulatory clinics and hospital sitesin [place], [place], [place] and [place]. This disclosure is being madepursuant to the Care Everywhere program and may not contain all information available regarding this patient. Last updated 18.[facility] Allergies Active Allergy Reactions Criticality Noted Date Comments Adhesive Sensitivity Rash Medium 03/01/2018 Medications * Be aware that medications may not be up to date on this document. Alwaysverify current medications with the patient. ASPIR-81 PO Take 1 Tab by mouth daily. Active omeprazole (PRILOSEC) 20 MG capsule TAKE 1 CAPSULE DAILY BEFORE BREAKFAST 90 Cap 0 5 Active vitamin D, cholecalciferol , 2000 UNITS tablet Take 1 (one) tablet by mouth once daily Active clotrimazole-be tamethasone (LOTRISONE) 1-0.05 % cream APPLY TO THE AFFECTED AREA TWICE A DAY FOR 4 DAYS. REASON: SKIN INFECTION DUE TO [place] YEAST 15 g 2 9 Active multivitamin daily tablet Take 1 (one) tablet by mouth daily with food Active meclizine (ANTIVERT) 25 MG tablet Take 1 (one) tablet by mouth 2 times daily as needed for Dizziness 30 tablet 1 Active buPROPion SR 12hr (ZYBAN) 150 MG tablet Take 1 (one) tablet by mouth every 12 hours 0 Active hyoscyamine CR 12hr (LEVBID) 0.375 MG tablet TAKE 1 TABLET EVERY 12 HOURS NEEDED FOR CRAMPING DIRECTED 0 Active docusate sodium (Colace) 100 MG capsule Take 1 (one) capsule by mouth 2 times daily Active polyethylene glycol 3350 (Miralax) 17 g packet Take by mouth once daily Active Active Problems Problem Noted Date Diagnosed Date CVA (cerebral vascular accident) 02/04/2022 Paronychia of middle finger 09/09/2021 Overview (03/20/2022): Last Assessment & Plan: New problem. Doxycycline given. Encouraged her to soak finger in epson salt. For the the nail fungus, it is growing out so no additional treatment at this time. She will follow up if there is no improvement. Encouraged her to avoid manicures at this time. Last Assessment & Plan: New problem. Doxycycline given. Encouraged her to soak finger in epson salt. For the the nail fungus, it is growing out so no additional treatment at this time. She will follow up if there is no improvement. Encouraged her to avoid manicures at this time. Moderate episode of recurrent major depressive d isorder 01/30/2019 Sensorineural hearing loss (SNHL) of both ears 0 11/09/2018 Migraine equivalent 11/09/2018 BMI 28.0-28.9,adult 10/20/2018 Small intestinal bacterial overgrowth 10/20/2018 Hypertension 08/27/2015 Overview (03/24/2017): Overview: Hypertension Gastroesophageal reflux disease 08/27/2015 Overview (03/20/2022): GERD (gastroesophageal reflux disease) Stress incontinence 02/12/2015 Hypercholesterolemia 04/17/2010 Depression 04/12/2009 IBS (irritable bowel syndrome) 04/12/2009 Benign paroxysmal vertigo 04/12/2009 HSV infection 06/08/2008 Resolved Problems Problem Noted Date Diagnosed Date Resolved Date Screening for condition 06/08/2008 02/0 09/2009 Overview (05/09/2015): Adult Abstraction Problem List Screening Pap Smear: Result: 07/15 Mammogram: Result: 08/04/2007 Colonoscopy: Result:2004 Encounters Date Type Department Care Team Description 10/23/2024 12:00 PM CDT Office Visit [facility] - [employer] [address] [place] [address], [address] [place] [address] Senthil Schroeder MD Pap smear, as part of routine gynecological examination (Primary Dx); Encounter for screening mammogram for malignant neoplasm of breast 10/23/2024 Travel from Last 3 Months Immunizations Immunization Administration Dates Next Due INFLUENZA VACCINE, TRIV. (AF LURIA, FLUZONE TRIVALENT; 6MO+) (IIV3) 07/25/2012 INFLUENZA VACCINE 05/24/2020,04/27/2018,05/26/20 17 INFLUENZA VACCINE, CELL CULT URE, QUADR. (FLUCELVAX QUADRIVALENT; 6MO+), 0.5 ML (CCIIV4) 05/11/2019 INFLUENZA VACCINE, QUADR. (F LUZONE; FLULAVAL; FLUARIX; AFLURIA QUADRIVALENT; 6MO+), 0.5 ML (IIV4) 04/27/2018 INFLUENZA VACCINE, TRIV. (FL UZONE; FLULAVAL; FLUARIX; AFLURIA TRIVALENT; 6MO+), 0.5 ML (IIV3) 04/28/2017,04/30/2016 TDAP (7yrs+) 09/16/2010 TDAP, HISTORIC VACCINE 11/06/2021 Zoster Hzv Vacc Recombinant Inj Im 05/12/2019, Family History Medical History Relation Name Comments Heart Disease Father Hypercholesterolemia Mother Hypertension Mother Thyroid Disease Mother Asthma Neg Hx Autoimmune Disease Neg Hx Bipolar Disorder Neg Hx Cancer - Breast Neg Hx Cancer - Colon Neg Hx Cancer - Other Neg Hx Cancer - Ovarian Neg Hx Cancer - Pancreatic Neg Hx Cancer - Prostate Neg Hx Depression Neg Hx Eczema Neg Hx Migraine Neg Hx Osteoporosis Neg Hx Seizures Neg Hx Sudd. <30 Neg Hx Ulcerative Colitis Neg Hx Relation Name Status Comments Father Alive Mother Alive Social History Tobacco Use Types Packs/Day Years Used Date Smoking Tobacco: Never Smokeless Tobacco: Never Tobacco Cessation:Counseling Given: Yes Alcohol Use Standard Drinks/Week Comments Yes 0 (1 standard drink = 0.6 oz pur e alcohol) rarely PHQ-2 Answer Date Recorded Patient Health Questionnaire-2 Score 0 09/21/2024 Comments No Sex and Gender Information Value Date Recorded Sex Assigned at Female 09/22/2023 4:31 PM SATURATOR OPERATOR Legal Sex Female 6:46 AM SATURATOR OPERATOR Gender Identity Female 09/22/2023 4:31 PM SATURATOR OPERATOR Sexual Orientation Straight 09/22/2023 4: 31 PM SATURATOR OPERATOR Last Filed Vital Signs Vital Sign Reading Time Taken Comments Blood Pressure 116/72 10/23/2024 12:00 PM CDT Pulse 77 09/16/2021 4:41 PM SATURATOR OPERATOR Temperature 35.9 C (96.7 F) 03/20/2022 3:23 PM CDT Respiratory Rate 18 09/16/2021 4:41 PM SATURATOR OPERATOR Oxygen Saturation 98% 09/16/2021 4:41 PM SATURATOR OPERATOR Inhaled Oxygen Concentration - - Weight 67.7 kg (149 lb 3.2 oz) 10/23/2024 12:00 PM CDT Height 165.1 cm (5' 5 ) 10/23/2024 12:00 PM CDT Body Mass Index 24.83 10/23/2024 12:00 PM CDT Plan of Treatment Upcoming Encounters Date Type Department Care Team (Late st Contact Info) Description 01/23/2025 11:30 AM CDT Office Visit [facility] - [facility] [address] [place] [address], [address] [place] [phone] Senthil Schroeder MD [address] [place] [address]. [address] [address] Health Maintenance Due Date Last Done Comments COLOGUARD (AGES 45-75) - COLON CA SCREENING 1962 CT COLONOGRAPHY - COLON CA SCREENING 1962 FIT - COLON CA SCREENING 1962 FLEX SIG - COLON CA SCREENING 1962 HIV SCREENING 1977 HEPATITIS C SCREENING 06/19/1980 PNEUMOCOCCAL VACCINE 50+ (1 of 1 - PCV) 2012 LIPID TESTING 11/30/2018 11/30/2013, 11/02/2011 COVID-19 VACCINE ( season) 2024 07/05/2021, 11/08/2020, 10/15/2020 INFLUENZA VACCINE (Season Ended) 2025 05/21/2023, 04/24/2022, 05/24/2020, Additional history exists MAMMOGRAM 11/23/2025 11/24/2023, 11/07, 11/24/2023, Additional history exists PAP SMEAR 10/24/2027 10/23/2024, 01/2024, 04/24/2022, Additional history exists DTAP/TDAP/TD VACCINES (3 - Td or Tdap) 11/07/2031 11/06/2021, 09/16/2010 COLON MONITORING 11/03/2032 11/03/2022, 11/14/2009 COLONOSCOPY - COLON CA SCREENING 11/03/2032 11/03/2022, 11/03/2022, 11/14/2009 Colorectal Cancer Screening 11/03/2032 Respiratory Syncytial Virus (RSV) Vaccine Pt: or over 60 yrs (1 - 1-dose 75+ series) 2037 ZOSTER VACCINE Completed 05/12/2019, 01/29/2019 DEPRESSION SCREENING Completed 10/23/2024, 09/14/2023, 04/24/2022, Additional history exists HEPATITIS B VACCINE Aged Out No longe r eligible based on patient's age to complete this topic HIB VACCINE Aged Out No longer eligi ble based on patient's age to complete this topic HPV VACCINE Aged Out No longer eligi ble based on patient's age to complete this topic MENINGOCOCCAL (Group B) VACCINE SHARED DECISION-MAKING Aged Out No longer eligible based on patient's age to complete this topic MENINGOCOCCAL GROUPS A/C/Y/W VACCINE Aged Out No longer eligible based on patient's age to complete this topic Goals Goal Patient Goal Type Associated Problems Recent Progress Patient-Stated? Author [facility] Lifestyle: Have labs drawn Lifestyle No Destiny Rehman MA [facility] Lifestyle:Y early PCP visit Lifestyle No Destiny Rehman MA Procedures Procedure Name Priority Date/Time Associated Diagnosis Comments PAP IG RFLX HPV HR ASCUS RFLX 16/18/45 Routine 10/23/2024 12:09 PM CDT Pap smear, as part of routine gynecological examination MAMMOGRAM 11/24/2023 COLONOSCOPY 11/03/2022 LIPID PROFILE W LDL/HDL RATIO Routine 11/30/2013 8:33 AM CDT Pure Hypercholesterolemia from Last 3 Months or Most Recently Relevant to Health Maintenance Results * PAP IG RFLX HPV HR ASCUS RFLX 16/18/45 (10/23/2024 12:09 PM CDT) Diagnosis Comment [facility] ACCOUNT BILL Comment: NEGATIVE FOR INTRAEPITHELIAL LESION OR MALIGNANCY. CELLULAR CHANGES ASSOCIATED WITH ATROPHY ARE PRESENT. Specimen Adequacy Comment [facility] ACCOUNT BILL Comment: Satisfactory for evaluation. Endocervical component may not be distinguished in cases of atrophy. Clinician Provided ICD10 Comment [facility] ACCOUNT BILL Comment:Z01.419 Performed by Comment [facility] ACCOUNT BILL Comment:Magaly Luna, Cyto technologist (ASCP) Comment . [facility] ACCOUNT BILL Note Comment [facility] ACCOUNT BILL Comment: The Pap smear is a screening test designed to aid in the detection of premalignant and malignant conditions of the uterine cervix. It is not a diagnostic procedure and should not be used as the sole means of detecting cervical cancer. Both false-positive and false-negative reports do occur. IGLBP CPT Code Automation Comment [facility] ACCOUNT BILL Comment: This liquid based ThinPrep(R) pap test was screened with the use of an image guided system. Note Comment [facility] ACCOUNT BILL Comment: The HPV DNA reflex criteria were not met with this specimen result therefore, no HPV testing was performed. Pathology/Cytolog y PART OF UTERINE CERVIX / Unknown 10/23/2024 12:09 PM CDT 10/23/2024 Comment:Cervix Release to xavier velazquez Narrative [facility] ACCOUNT BILL - 10/26/2024 1:09 PM CDT Performed at: - [facility] [address], [place] [id number] Pattern Keeper: Elizabeth Wolf PhD, Phone: [phone] Performed at: 02 - [facility] [place] [address] [facility], [place] [id number] Pattern Keeper: Prema Ovalles MD, Phone: [phone] Specimen Comment: [id number] Specimen Comment: Source.............Cervix;Endocervix Specimen Comment: No. of containers..01 ThinPrep Vial us Senthil Schroeder MD LAB - PATHOLOGY/CYTOLOGY ORD ERABLES Final Result [facility] ACCOUNT BILL [address] [place] [address] * MAMMOGRAM (11/24/2023) Anatomical Region Laterality Modality Other 11/24/2023 Narrative 11/24/2023 Ordered by an unspecified provider. us Scanned Document SCANNING ONLY Final Result * COLONOSCOPY (11/03/2022) 11/03/2022 Narrative 11/03/2022 Ordered by an unspecified provider. us Scanned Document SCANNING ONLY Final Result * (ABNORMAL) LIPID PROFILE W LDL/HDL (PO REF LAB) (11/30/2013 8:33 AM CDT) Cholesterol 214(H) 100 - 199 mg/dL [facility] ACCOUNT BILL Triglycerides 132 0 - 149 mg/dL [facility] ACCOUNT BILL HDL Cholesterol 67 >39 mg/dL [facility] ACCOUNT BILL Comment: According to ATP-III Guidelines, HDL-C >59 mg/dL is considered a negative risk factor for CHD. VLDL Calculated 26 5 - 40 mg/dL [facility] ACCOUNT BILL LDL Calculated 121(H) 0 - 99 mg/dL [facility] ACCOUNT BILL Comment NOT NEEDED [facility] ACCOUNT BILL Comment:Ancillary determined the test is not needed LDL/HDL Ratio 1.8 0.0 - 3.2 ratio units [facility] ACCOUNT BILL Blood specimen (specimen) BLOOD SPECIMEN / Unknown 11/30/2013 8:33 AM CDT 11/30/2013 12:47 PM CDT Narrative Resulting Agency Comment [facility] [address] [facility] [phone] us Kevin Rivera MD LAB - CHEMISTRY ORDERABLE S Final Result [facility] ACCOUNT BILL [address] [place] [address] from Last 3 Months or Most Recently Relevant to Health Maintenance Insurance [facility] Care Teams Electrical Cad Technician Relationship Specialty Start Date End Date Senthil Schroeder MD PCP - OBGYN 06/08/08 Kevin Rivera MD [address] [phone] PCP - General 04/12/09
--- OUTSIDE RECORDS SUMMARY | 2024-12-09 13:32 | XMS_ITS | Clinical Summary ---
Author Organization [facility] Address [address] [place] [address] Phone Care Team Providers Care Music Industry Intern Name Role Phone Kevin Rivera MD Primary Care Provider + Lauern De Dios ID Unavailable [phone] Allergies Active Allergy Reactions Criticality Noted Date Comments Adhesive Itching,Rash,Redness Medium 12/18/2021 Medications multivitamin, mu-jrsw-Jm-FA -min 27-0.4 mg tablet Take 1 tablet [...] 09/09/2021 Assessment & Plan (09/09/2021 8:36 AM CLIENT INSIGHTS CONSULTANT): New problem. Doxycycline given. Encouraged her to [...] & will start on antibiotics + saline, gaux-rkd-qsucmts mucolytic & a Tessalon Encounters Date Type Department Care Team Description 11/28/2024 Results Follow-Up [facility] Primary Care at [address] [place] [phone] Kevin Rivera MD 11/27/2024 10:23 AM CDT - 11/27/2024 11:59 PM CDT Hospital Encounter [address] [place] [phone] Discharge Disposition: Discharge to home or self care 11/27/2024 10:00 AM CDT Office Visit [facility] Primary Care at [address] [place] [phone] Kevin Rivera MD Annual physical exam (Primary Dx); Moderate episode of recurrent major depressive disorder (HCC); Encounter for screening mammogram for malignant neoplasm of breast 11/27/2024 Nurse Triage [facility] Primary Care at [facility] [address] [place] [phone] Kevin Rivera MD 10/25/2024 1:17 PM CDT - 10/25/2024 11:59 PM CDT Hospital Encounter [facility] [address] [place] [phone] Arthrodesis status Discharge Disposition: Discharge to home or self care 09/18/2024 Nurse Triage [facility] Primary Care at [address] [place] [phone] Kevin Rivera MD from Last 3 Months Immunizations Immunization Administration Dates Next Due Influenza, Quadrivalent, Kaya l Culture-based MDCK, Antibiotic Free, Intramuscular 05/11/2019 Influenza, Quadrivalent, Spl it, Preservative Free, Intramuscular 05/21/2023,04/24/2022,04/27/2018 Influenza, Trivalent, IM (MDV) 07/25/2012 Influenza, Trivalent, Preser vative Free, Intramuscular 04/28/2017,04/30/2016 Influenza, Unspecified 05/29/2021(Deferr ed: Patient Refused),05/24/2020,04/27/2018, 017 Pfizer SARS-CoV-2 Monovalent Vaccination (12+ Yrs) PURPLE 06/29/2021,11/08/2020,10/15/2020 Tdap 11/06/2021,09/16/2010 ZOSTER Recombinant 05/12/2019,01/29/2019 Surgical History Surgery Date Site/Laterality Comments TONSILLECTOMY POSTERIOR LAMINECTOMY / DECOMPRESSION LUMBAR SPINE TOTAL KNEE ARTHROPLASTY Right Medical History Medical History Date Comments Depression Depression Gastroesophageal reflux disease GERD Hypertension Hypertension Hypercholesterolemia PONV (postoperative nausea and vomiting) Family History Medical History Relation Name Comments Coronary artery disease Father Koffi nary artery disease; Dementia Mother Alive and well; Thyroid disease Mother Thyroid diso rder; Breast cancer Neg Hx Ovarian cancer Neg Hx Thyroid cancer Neg Hx Relation Name Status Comments Father Mother Social History Tobacco Use Types Packs/Day Years Used Date Smoking Tobacco: Never Smokeless Tobacco: Never Tobacco Cessation:Counseling Given: Not Answered Alcohol Use Standard Drinks/Week Comments Yes 0 (1 standard drink = 0.6 oz pur e alcohol) [facility] Utilities Answer Date Recorded In the past 12 months has th e electric, gas, oil, or water company threatened to shut off services in your [...] often do you attend chur ch or pentecostalism services? 1 to 4 times per year 06/21/2024 Do you belong to any clubs o r organizations such as baptist groups, unions, fraternal or athletic groups, or [...] any time in the past 12 m [facility], were you homeless or living in a care home (including now)? No 06/21/2024 Personal Safety Answer Date Recorded Have you ever been in or are you currently in a harmful physical or emotional relationship or is someone making you feel afraid or unsafe? 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 Not on file Not on kaushik e Obstetrics History Para Term AB IAB SAB Ectopic Multiple Livin g Live Births 3 3 3 Date Outcome GA Total Labor Labor/2nd/3rd Weight Sex Type Anes PTL Madeleine A1 A5 Name Clin Term Term Term Last Filed Vital Signs Vital Sign Reading Time Taken Comments Blood Pressure 102/60 11/27/2024 9:59 AM CDT Pulse 54 11/27/2024 9:59 AM CDT Temperature 36.8 C (98.3 F) 06/22/2024 8:00 AM CLIENT INSIGHTS CONSULTANT Respiratory Rate 16 06/22/2024 8:00 AM CLIENT INSIGHTS CONSULTANT Oxygen Saturation 99% 11/27/2024 9:59 AM CDT Inhaled Oxygen Concentration - - Weight 68.5 kg (151 lb) 11/27/2024 9:59 AM CDT Height 165.1 cm (5' 5 ) 11/27/2024 9:59 AM CDT Body Mass Index 25.13 11/27/2024 9:59 AM CDT Plan of Treatment Health Maintenance Due Date Last Done Comments Cervical Cancer Screening 03/24/2018 03/24/2017 Covid-19 Vaccine ( season) 2024 07/15/2022, 06/29/2021, 11/08/2020, Additional history exists Breast Cancer Screening-Mammogram 11/23/2024 11/24/2023, 07/07/2022, 04/19/2021, Additional history exists Influenza Vaccine (Season Ended) 2025 05/21/2023, 04/24/2022, 05/24/2020, Additional history exists Depression Screening 11/27/2025 11/27/2024, 11/25/2023, 11/10/2022, Additional history exists Regular Well Visit/Exam 18-64 11/27/2025 11/27/2024, 11/25/2023, 11/10/2022, Additional history exists DTaP/Tdap/Td Vaccine (3 - Td or Tdap) 11/07/2031 11/06/2021, 09/16/2010 Colon Cancer Screening-Colonoscopy 11/03/2032 11/03/2022, 07/09/2017 Hepatitis C Screening Completed 10/08/2017 Zoster Vaccine Completed 05/12/2019, 01/29/2019 Colon Cancer Screening-CT Colonography Discontinued 11/03/2022, 07/09/2017 Colon Cancer Screening-DNA Stool Discontinued 11/03/2022, 07/09/2017 Colon Cancer Screening-FIT Discontinued 11/03/2022, Colon Cancer Screening-Sigmoidoscopy Discontinued 11/03/2022, 07/09/2017 Hepatitis B Screening Completed 11/25/2023 Pneumococcal vaccine <65 Aged Out No longer eligible based on patient's age to complete this topic Medical Devices Implanted Type Area Orchard Hand Device Identifier Shelf Expiration Date Model / Serial / Lot Zuldi Inc Palacos R High Viscosity Cement 40gm Bone Green [id number] - [id number] Implanted:Qty: 1 on 03/16/2024 by Manolo Avila MD at [facility] Bone Cement Right: Knee [employer] 05/08/2028 [id number] / / [id number] Screws Right: Foot [employer]endez [employer] Nephew/Richco/Or tho Journey Bicruciate Stabilize Knee Right 3 Baseplate Tibial [id number] - [id number] Implanted:Qty: 1 on 03/16/2024 by Manolo Avila MD at [facility] Right: Knee [employer]hew/Richco/O rtho [id number] 09/21/2033 [id number] / / [id number] Mel[employer]hew/Richco/Or tho Journey Ii Cruciate Retain Knee Right 5 Component Femoral Oxinium [id number] - [id number] Implanted:Qty: 1 on 03/16/2024 by Manolo Avila MD at [facility] Right: Knee [employer]/Rich[employer]/O rtho [id number] 11/06/2033 [id number] / / [id number] [employer]hew/Richco/Or tho Journey 32mm 7.5mm Resurface Round Component Patellar [id number] - [id number] Implanted:Qty: 1 on 03/16/2024 by Manolo Avila MD at [facility] Right: Knee [employer]Rich[employer]/O rtho [id number] 10/26/2033 [id number] / / [id number] [employer]hew/Richco/Or tho Insert Tibial Knee Fixed Rm Articular Journey Ii 10mm Size 3-4 Xlpe [id number] - [id number] Implanted:Qty: 1 on 03/16/2024 by Manolo Avila MD at [facility] Right: Knee [employer]Rich[employer]/O rtho [id number] 04/17/2033 [id number] / / [id number] Bridgewater Spine 4.5mm 100mm Contour Doni Spinal Cocr [id number] - [id number] Implanted:Qty: 2 on 06/20/2024 by Senthil Mills MD at [facility] N/A: Lumbar-S acral Spine Bridgewater Spine [id number] 0 / / Bridgewater Spine 26mm Semiadjustable Transverse Spine Connector Doni Posterior [id number] - [id number] Implanted:Qty: 1 on 06/20/2024 by Senthil Mills MD at [facility] N/A: Lumbar-S acral Spine Chela Spine [id number] A / / Biocomposites Stimulan Rapid Cure Kit Paste Candy Separator Hard 10cc 20cc Bone Void 620-010 - [id number] Implanted:Qty: 1 on 06/20/2024 by Senthil Mills MD at [facility] N/A: Lumbar-S acral Spine Biocomposites 01/06/2025 620-010 / / [id number] Bridgewater Spine 4mm 30mm Polyaxial Spine Screw Bone Deformity 3001-27624 - [id number] Implanted:Qty: 8 on 06/20/2024 by Senthil Mills MD at [facility] N/A: Spine Lumbar Chela Spine [id number] / / Zavation Llc Cage Spinal Lumbar 10 Degree Tlif Expandable 7-11.5mm Titanium [id number] - [id number] Implanted:Qty: 3 on 06/20/2024 by Senthil Mills MD at [facility] N/A: Spine Lumbar Zavation Llc [id number] 0 / / Zavation Llc Cage Spinal Lumbar 0 Degree Plif Expandable Ezspand 7-11.5mm Titanium [id number] - [id number] Implanted:Qty: 2 on 06/20/2024 by Senthil Mills MD at [facility] N/A: Spine Lumbar Zavation Llc [id number] / / Bridgewater Spine 23mm Semiadjustable Transverse Spine Connector Doni Posterior [id number] - [id number] Implanted:Qty: 1 on 06/20/2024 by Senthil Mills MD at [facility] N/A: Lumbar-S acral Spine Bridge[place] Spine [id number] A / / Procedures Procedure Name Priority [...] HEPATITIS C ANTIBODY Routine 10/08/2017 9:00 AM CLIENT INSIGHTS CONSULTANT Annual physical exam HM PAP SMEAR WITH [...] MD LAB BLOOD ORDERABLES Fin al Result [facility] [address] Department [place] [address] * Differential, auto (11/27/2024 10:22 AM CDT) Neutrophil abs 3.16 1.50 - 6.50 K/cumm Imm gran abs 0.02 0.00 - 0.10 K/cumm [facility] Lymphocyte abs 1.99 0.80 - 3.30 K/cumm [facility] Monocyte abs 0.36 0.20 - 0.80 K/cumm [facility] Eosinophil abs 0.08 0.00 - 0.50 K/cumm [facility] Basophil abs 0.02 0.00 - 0.10 K/cumm [facility] Neutrophil pct 56.1 % [facility] Comment: Interpretive Data Percent cell count reference ranges are not reported, since discordance with absolute values may lead to misinterpretation of CBC data. Current Interpretive Data was last revised on 2017. Imm gran pct 0.4 % [facility] Comment: Interpretive Data Percent cell count reference ranges are not reported, since discordance with absolute values may lead to misinterpretation of CBC data. Current Interpretive Data was last revised on 2017. Lymphocyte pct 35.3 % [facility] Comment: Interpretive Data Percent cell count reference ranges are not reported, since discordance with absolute values may lead to misinterpretation of CBC data. Current Interpretive Data was last revised on 2017. Monocyte pct 6.4 % [facility] Comment: Interpretive Data Percent cell count reference ranges are not reported, since discordance with absolute values may lead to misinterpretation of CBC data. Current Interpretive Data was last revised on 2017. Eosinophil pct 1.4 % [facility] Comment: Interpretive Data Percent cell count reference ranges are not reported, since discordance with absolute values may lead to misinterpretation of CBC data. Current Interpretive Data was last revised on 2017. Basophil pct 0.4 % [facility] Comment: Interpretive Data Percent cell count reference ranges are not reported, since discordance with absolute values may lead to misinterpretation of CBC data. Current Interpretive Data was last revised on 2017. Blood 11/27/2024 10:2 2 AM CDT 11/27/2024 6:00 PM CDT us Kevin Rivera MD LAB BLOOD ORDERABLES Fin al Result Performing Organization Address [facility] Co de Phone Number [facility] [address] Department of [employer] [place], [place] [id number] * Thyroid Function [place] (11/27/2024 10:22 AM CDT) TSH 1.12 0.30 - 4.20 mcIUnit/mL Blood 11/27/2024 10:2 2 AM CDT 11/27/2024 8:20 PM CDT Kevin Rivera MD LAB BLOOD ORDERABLES Fin al Result Performing Organization Address [facility] Co de Phone Number [facility] [address] Department [place] [address] * Urinalysis reflex to microscopic and culture Urine, clean voided (11/27/2024 10:22 AM CDT) Color, ur Yellow Yellow Clarity, ur Clear Clear [facility] Specific gravity, ur 1.020 1.003 - 1.030 [facility] pH, urine 6.0 [facility] Comment: Interpretive Data U rine pH is affected by diet, medications, systemic acid-base disturbances, and renal tubular function. pH may affect urinary stone formation. For example, urine pH below 6.0 may help reduce the tendency for calcium phosphate stones and pH greater than 6.0 may reduce the tendency for uric acid stone formation. Source: [facility] Current Interpretive Data was last revised on 2017 Protein, ur ql Negative Negative [facility] Glucose, ur ql Negative Negative [facility] Ketones, ur Negative Negative [facility] Bilirubin, ur Negative Negative [facility] Blood, ur Negative Negative [facility] Urobilinogen, ur <2.0 <2.0 mg/dL [facility] Nitrite, ur Negative Negative [facility] Leukocyte esterase, ur Negative Negative [facility] UA reflex comment Reflex conditions for microscopic UA and culture not met. [facility] Urine, clean voided 11/27/2024 10:22 AM CDT 11/27/2024 10:23 AM CDT us Kevin Rivera MD LAB MICROBIOLOGY - GENER AL ORDERABLES Final Result [facility] [address] Department [place] [address] * (ABNORMAL) CBC with auto differential (11/27/2024 10:22 AM CDT) WBC 5.63 3.80 - 9.90 K/cumm Hgb 12.3 11.9 - 15.5 g/dL [facility] Hct 39.1 35.6 - 45.5 % [facility] Plt 299 150 - 400 K/cumm [facility] MPV 9.1 9.1 - 12.3 fL [facility] RBC 4.10 3.90 - 5.20 M/cumm [facility] MCV 95.4 81.3 - 96.4 fL [facility] MCH 30.0 27.1 - 33.3 pg [facility] MCHC 31.5(L) 32.3 - 35.7 g/dL [facility] RDW CV 15.2(H) 11.1 - 14.9 % [facility] RDW SD 53.6(H) 35.7 - 48.1 fL [facility] NRBC abs 0.00 0.00 - 0.01 K/cumm [facility] Blood 11/27/2024 10:2 2 AM CDT 11/27/2024 6:00 PM CDT us Kevin Rivera MD LAB BLOOD ORDERABLES Fin al Result [facility] [address] Department [place] [address] * (ABNORMAL) Lipid panel (11/27/2024 10:22 AM [...] revised on 2018. Triglycerides 107 <=149 mg/dL [facility] Comment: Interpretive Data Ages < or = [...] revised on 2018. HDL 62 >=40 mg/dL [facility] Comment: Interpretive Data Ages < or = [...] on 2018. LDL, calculated 122 <=129 mg/dL [facility] Comment: Interpretive Data Ages < or = [...] NCEP Expert Panel. Circulation 2004;110:227 3. Asher Hurley. PAULIE Cardiol. 2020 December 07;5(5):540-548. doi: 10.1001/jamacardio.2020.0013 Current Interpretive Data was last revised on 2024. Non-HDL Cholesterol 141 mg/dL [facility] Comment: Interpretive Data Ages < or = [...] last revised on 2018. Chol/HDL ratio 3 [facility] Blood 11/27/2024 10:2 2 AM CDT 11/27/2024 8:20 PM CDT us Kevin Rivera MD LAB BLOOD ORDERABLES Fin al Result [facility] [address] Department [place] [address] * (ABNORMAL) Comprehensive metabolic panel (11/27/2024 10:22 AM CDT) Sodium 140 135 - 145 mmol/L Potassium, pl 4.1 3.3 - 4.9 mmol/L [facility] Chloride 104 97 - 110 mmol/L [facility] CO2 25 22 - 32 mmol/L [facility] Anion gap 11 2 - 15 mmol/L [facility] BUN 13 6 - 25 mg/dL [facility] Creatinine 0.84 0.60 - 1.10 mg/dL [facility] Glucose 53(C) 70 - 199 mg/dL [facility] Comment: Critical result called to and read back by Sue Tony RN on 11/27/2024 2032 to [id number] Interpretive Data Fasting glucose >/= 126 mg/dl [...] classification and Diagnosis of Diabetes Diabetes Care 2021; 46: S19-S40. Current interpretive data was last revised 2022. Calcium 9.7 8.5 - 10.3 mg/dL [facility] Bilirubin, total 0.4 0.1 - 1.2 mg/dL [facility] Protein, pl 7.0 6.5 - 8.5 g/dL [facility] Albumin 4.2 3.5 - 5.0 g/dL [facility] Alk phos 79 40 - 130 Units/L [facility] ALT 14 7 - 45 Units/L [facility] AST 23 10 - 45 Units/L [facility] Blood 11/27/2024 10:2 2 AM CDT 11/27/2024 8:20 PM CDT us Kevin Rivera MD LAB BLOOD ORDERABLES Fin al Result [facility] [address] Department [place] [address] * XR Spine Lumbar 2 or 3 [...] * Hepatitis C antibody (10/08/2017 9:00 AM CLIENT INSIGHTS CONSULTANT) Hep C Ab Non-Reactiv e Non-Reactiv e [facility] Blood specimen (specimen) 10/08/2017 9:00 AM CLIENT INSIGHTS CONSULTANT 10/08/2017 1:15 PM CLIENT INSIGHTS CONSULTANT Narrative [facility] - 10/08/2017 2:14 PM CLIENT INSIGHTS CONSULTANT us Kevin Rivera MD LAB MICROBIOLOGY - GENER AL ORDERABLES Final Result [facility] [address] Department [place] [address] * PAP SMEAR WITH HPV (03/24/2017) Pap smear Normal us Historical Provider HEALTH MAINTENANCE Final Result from Last 3 Months or Most Recently Relevant to Health Maintenance Insurance [id number] [employer] OPTIONS PPO [facility] [place] Member Subscriber Plan / Payer (Ef fective 2022-Present) Name:Lottie Vides Relation to Subscriber:Spouse Name:HANNAH VIDES Date of :1961 Address: [address] [place] [address] Payer ID:[id number] (NAIC) Type:COMMERCIAL Address: [address] [place] [phone] [facility] [employer] [place] OPTIONS PPO Advance Directives For more information, please contact: [phone] Documents on File Type Date Recorded 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
--- OUTSIDE RECORDS SUMMARY | 2024-12-09 13:32 | XMS_ITS | Encounter Summary ---
Author Organization [facility] Address [address] [place] [address] Care Team Providers Care High Value Associate Name Role Phone Kevin Rivera MD Primary Care Provider + Lauren De Dios RI Unavailable [phone] Encounter Details Date Type Department Care Team (Late st Contact Info) Description 11/28/2024 Results Follow-Up [facility] Primary Care at [facility] [address] [phone] Kevin Rivera MD [facility] [facility] [address], [place] [address] Social History Tobacco Use Types Packs/Day Years Used Date Smoking Tobacco: Never Smokeless Tobacco: Never Alcohol Use Standard Drinks/Week Comments Yes 0 (1 standard drink = 0.6 oz pur e alcohol) [facility] Utilities Answer Date Recorded In the past 12 months has e electric, gas, oil, or water company [...] often do you attend chur ch or restoration services? 1 to 4 times per year 06/21/2024 Do you belong to any clubs o r organizations such as orthodoxy groups, unions, fraternal or athletic groups, or [...] any time in the past 12 m [facility], were you homeless or living in a alf (including now)? No 06/21/2024 Personal Safety Answer Date Recorded Have you ever been in or are you currently in a harmful physical or emotional relationship or is someone making you feel afraid or unsafe? 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
== END 2024-12-08 12:52 | disposition home or self-care (01) ==
LOC: CHSIMG 12:51
PROVIDERS: PCP Internal Medicine; Visit Provider Internal Medicine
DX: Z12.31 Encounter for screening mammogram for malignant neoplasm of breast (principal)
CPT/HCPCS: 77063; 77067